=== PATIENT | female | born 1975 | race African-American/Black ===

== ENCOUNTER 2020-10-01 16:49 | Emergency (ER) | payer MEDICARE, MEDICAID, SELFPAY ==
[2020-10-01 17:01] VITALS: BP 123/82; PULSE 84; RESP 15; TEMP 36.6; O2SAT 97; BMI 23.6
--- NOTE | 2020-10-01 17:10 | XR_ITS ---
EXAMINATION: XR CHEST CLINICAL INFORMATION: 45-year-old female patient status post bystander CPR . COMPARISON: None TECHNIQUE: AP portable semierect view of the chest was obtained. The time of examination was 5:55 PM. FINDINGS: No significant abnormality is noted involving the heart, lungs, mediastinum, bony thorax or soft tissues. A nodular shadow measuring 0.8 cm is superimposed upon the anterior aspect of the right sixth rib. This is felt to represent a nipple shadow. XR/XR chest 1V IMPRESSION: Lungs clear. No sign of rib fracture.
--- NOTE | 2020-10-01 17:12 | ECG_ITS ---
Test Reason : s/p bystader CPR, OD Blood Pressure : / mmHG Vent. Rate : 073 BPM Atrial Rate : 073 BPM P-R Int : 182 ms QRS Dur : 084 ms QT Int : 440 ms P-R-T Axes : 063 053 044 degrees QTc Int : 484 ms Normal sinus rhythm Prolonged QT Abnormal ECG No previous ECGs available Referred By: Kassandra Mayen Electronically Signed By:VAHID LANE
--- NOTE | 2020-10-01 17:13 | ED.OVERDOSE ---
HPI - Overdose General Chief Complaint: Overdose Stated Complaint: od Time Seen by Provider: 10/01/20 17:02 Source: EMS Mode of arrival: EMS Limitations: no limitations History of Present Illness HPI Narrative: Patient comes to the emergency room after an overdose. Patient has history of chronic back pain, earlier today she took a tablet of what she thought it was Percocet, given by a friend. Later this afternoon, patient was found unresponsive in the bathroom by her , the started CPR and called EMS. On arrival, patient had pulse, she was given 2 doses of IV Narcan, patient responded well. Patient at this time is awake, very somnolent, complaining of nausea, no chest pain Related Data Home Medications Medication Instructions Recorded Confirmed gabapentin 10/01/20 lamotrigine 10/01/20 olanzapine 10/01/20 omeprazole 10/01/20 prazosin 10/01/20 quetiapine 10/01/20 sertraline 10/01/20 solifenacin 10/01/20 trazodone 10/01/20 Allergies Allergy/AdvReac Type Severity Reaction Status Date / Time aspirin Allergy Anxiety Verified 10/01/20 17:10 Review of Systems Review of Systems: Constitutional : No Weight loss, No Fever, No Chills, No Night Sweats, No Fatigue, No Malaise ENT/Mouth : No Hearing loss, No Ear Pain, No Nasal Congestion, No Sinus Pain, No Hoarseness, No sore throat, No Rhinorrhea, No Swallowing Difficulty Eyes: No Eye Pain, No Swelling, No Redness, No Foreign Body, No Discharge, No Vision Changes Cardiovascular : No Chest Pain, No SOB, No Dyspnea on Exertion, No Orthopnea, No Edema, No Palpitations Respiratory : No Cough, No Sputum, No Wheezing, No Smoke Exposure, No Dyspnea Gastrointestinal : Complaining of Nausea, No Vomiting, No Diarrhea, No Constipation, No abdominal Pain, No Hematochezia, No Melena Genitourinary : no irregular bleeding, No Dysuria, No Urinary Frequency, No Hematuria, No Urinary Incontinence, No Urgency, No Flank Pain, No Urinary Flow Changes, No Hesitancy Musculoskeletal : Chronic back pain, no sternal pain, No joint pain, No Myalgias, No Joint Swelling Skin : No Skin Lesions, No rash Neuro : No Weakness, No Numbness, No Paresthesias, No Loss of Consciousness, No Dizziness, No Headache Psych : No Anxiety/Panic, No Depression, No SI/HI/AH/VH, No Social Issues, Heme/Lymph: No Bruising, No Bleeding,No Lymphadenopathy Endocrine : No Polyuria, No Polydipsia, No Temperature Intolerance [facility] Past Medical History Medical History Anxiety Asthma Depression PTSD (post-traumatic stress disorder) Social History Social History Smoking Status: Current some day smoker Smoked in Last 30 Days: Yes Use of substances other than those prescribed or required for medical reasons: No Advance Directives: No Advance Directives Information Provided: No Physical Exam Vital Signs: Vital Signs: Last Vital Signs Temp 97.8 F 10/01/20 17:01 Pulse 84 10/01/20 17:01 Resp 15 10/01/20 17:01 BP 123/82 10/01/20 17:01 Pulse Ox 97 10/01/20 17:01 Body Mass Index 23.6 Appearance: Alert. Oriented X3. No acute distress. Somnolent but easily arousable Eyes: Pupils equal, round and reactive to light. ENT: Pharynx normal. Neck: Normal inspection. Neck supple. No lymph nodes noted. No crepitus CVS: Normal heart rate and rhythm. Pulses normal. Normal S1 and S2 Respiratory: No respiratory distress. Breath sounds normal. No Wheezing. No rales Abdomen: Soft and nontender. No rigidity. No distention. good BS x4 Skin: Skin warm and dry. Normal skin color. Normal skin turgor. Extremities: No lower extremity edema. No lower extremity edema. No Lacerations. No Rash Neuro: Oriented X 3. No motor deficit. No sensory deficit. Moving all extermities. No slurred speech. Course Course Course Narrative: Patient is awake, alert and oriented x4, no acute distress, ambulating without assistance, steady gait. Patient ready for discharge MDM - Overdose Imaging Data Chest x-ray: Radiologist's impression: No significant abnormality is noted involving the heart, lungs, mediastinum, bony thorax or soft tissues. A nodular shadow measuring 0.8 cm is superimposed upon the anterior aspect of the right sixth rib. This is felt to represent a nipple shadow. XR/XR chest 1V IMPRESSION: Lungs clear. No sign of rib fracture. ECG Data Attestation: I personally reviewed and interpreted this ECG as follows: (Her rate 73, normal sinus rhythm, QTC slightly prolonged at 484, no ST segment depression or elevation) Discharge Plan Discharge Clinical Impression: Drug overdose Qualifiers: Encounter type: initial encounter Injury intent: accidental or unintentional Qualified Code(s): T50.901A - Poisoning by unspecified drugs, medicaments and biological substances, accidental (unintentional), initial encounter Patient Disposition: Home, Self-Care Instructions: Adult Overdose (ED) Additional Instructions: Please stop using drugs. Please follow-up with your primary care physician tomorrow. If you have any worsening or new symptoms, please return to the emergency room or call 911 Prescriptions: No Action gabapentin RF: 0 lamotrigine RF: 0 olanzapine RF: 0 omeprazole RF: 0 prazosin RF: 0 quetiapine RF: 0 sertraline RF: 0 solifenacin RF: 0 trazodone RF: 0
[2020-10-01] MEDS: ondansetron HCL 4 MG/2 ML VIAL IVPUSH (17:30)
--- NOTE | 2020-10-01 17:47 | MHC.RECOVSUP ---
Meet with Patient. Patient Stated that it was a mistake I the wrong Medication. She was having bad back pains..
--- NOTE | 2020-10-01 19:18 | PC.NURSE ---
GAVE PATIENT ICE CHIPS PER DR. METZ.
[2020-10-01] MEDS: Naloxone HCl Nasal TAKE HOME 4 MG SPRAY NOSTRILALT (19:54)
[2020-10-01 20:07] VITALS: BP 128/83; PULSE 67; RESP 18; O2SAT 100
== END 2020-10-01 20:08 | disposition home or self-care (01) ==
PROVIDERS: Emergency Provider Emergency Medicine
DX: T40.2X1D Poisoning by other opioids, accidental (unintentional), subsequent encounter (principal); X58.XXXA Exposure to other specified factors, initial encounter; Z79.899 Other long term (current) drug therapy; F17.200 Nicotine dependence, unspecified, uncomplicated; Z71.6 Tobacco abuse counseling
CPT/HCPCS: 71045; 93005; 96374; 99284; 99285; J2405

== ENCOUNTER 2021-03-01 19:49 | Emergency (ER) | payer MEDICARE, MEDICAID, SELFPAY ==
--- NOTE | ~2021-03-01 | CT_ITS ---
EXAMINATION: CT HEAD WITHOUT CONTRAST CLINICAL INFORMATION: Seizures, headache COMPARISON: None TECHNIQUE: Contiguous axial imaging was performed from the skull base to vertex without intravenous administration of contrast. This CT examination was performed using dose optimization techniques as appropriate, variously including the following: *Automated exposure control *Adjustment of mA and/or kV according to patient size (this includes techniques or standardized protocols for targeted exams where dose is matched to indication/reason for exam; i.e. extremities or head) *Use of iterative reconstruction technique DLP: 726 mGy-cm FINDINGS: No evidence of acute intracranial hemorrhage or extra-axial fluid collection. No evidence of mass lesion, mass effect or midline shift. No acute territorial infarction. Ventricles are symmetric in configuration and normal in size. The basal cisterns are patent. The calvarium is intact. Limited views of the paranasal sinuses are unremarkable. Mastoid air cells are well aerated and middle ear cavities are clear. Limited views of the orbits are unremarkable. CT/CT head/brain wo con IMPRESSION: No acute intracranial pathology.
[2021-03-01 19:54] VITALS: BP 168/108; PULSE 77; RESP 18; TEMP 37.4; O2SAT 99; BMI 23.8
--- NOTE | 2021-03-01 21:37 | ED_ITS ---
HPI - General Adult General Chief complaint: General Medical Stated complaint: seizures Time Seen by Provider: 03/01/21 21:37 Source: patient Mode of arrival: ambulatory Limitations: no limitations History of Present Illness HPI narrative: Patient history of anxiety and depression stable at this time complaining of seizure-like activity lasting for 3 -4 minutes almost every week for last 3 months postictal she feels sleepy and tired family member who watched the episode with eyes up rolling and twitching movements patient does get aura before that last seizure was last week no head injury does have mild diffuse headache no family history of seizures Related Data Home Medications Medication Instructions Recorded Confirmed gabapentin 10/01/20 lamotrigine 10/01/20 olanzapine 10/01/20 omeprazole 10/01/20 prazosin 10/01/20 quetiapine 10/01/20 sertraline 10/01/20 solifenacin 10/01/20 trazodone 10/01/20 Previous Rx's Medication Instructions Recorded lorazepam [Ativan] 0.5 mg PO Q8-12H PRN #14 tab 03/01/21 Allergies Allergy/AdvReac Type Severity Reaction Status Date / Time adhesive Allergy Rash Verified 03/01/21 19:54 aspirin Allergy Anxiety Verified 10/01/20 17:10 Review of Systems 2 Review of Systems: Constitutional : No Weight loss, No Fever, No Chills ENT/Mouth : No sore throat, No Rhinorrhea Eyes: No Eye Pain, No Swelling Cardiovascular : No Chest Pain, no palpitations Respiratory : No Cough, No Sputum, no shortness of breath Gastrointestinal : no Nausea, No Vomiting, No Diarrhea, No abdominal Pain, no black stools Genitourinary : No Dysuria, No Urinary Frequency Musculoskeletal : No joint pain, No Myalgias, No Joint Swelling Skin : No Skin Lesions, No rash Neuro : No Weakness, No Numbness, No Dizziness, No Headache Psych : ++ Anxiety/Panic, No Depression Heme/Lymph: No Bruising, No Lymphadenopathy Endocrine : No Polyuria, No Polydipsia All other systems reviewed and are negative PMFSH Past Medical History Medical History Anxiety Asthma Depression PTSD (post-traumatic stress disorder) Social History Social History Advance Directives: No Advance Directives Information Provided: Yes Patient : No Physical Exam Vital Signs: Vital Signs: Last Vital Signs Temp 99.4 F 03/01/21 19:54 Pulse 84 03/01/21 22:01 Resp 18 03/01/21 22:01 BP 155/105 H 03/01/21 22:01 Pulse Ox 98 03/01/21 22:01 Body Mass Index 23.8 Appearance: Alert. Oriented X3. No acute distress. Eyes: PERRLA, No Nystagmus ENT: Pharynx normal. Oral Mucosa moist Neck: Normal inspection. Neck supple. CVS: Normal heart rate and rhythm. Pulses normal. Respiratory: No respiratory distress. Equal air entry bilateral, no wheezing/rales/rhonchi Abdomen: Soft and nontender. Bowel sounds are present, no mass palpable, no CVA tenderness Skin: Skin warm and dry. Normal skin color. Normal skin turgor. Extremities: No lower extremity edema. No calf tenderness Neuro: Oriented X 3. No motor deficit. No sensory deficit.No cerebellar signs , cranial nerves II-XII intact Medical Decision Making MDM Narrative Medical decision making narrative: Patient possibly have with pseudoseizures versus complex partial seizure with history of anxiety advised to follow-up with neurologist, take medication for anxiety Lab Data Result diagrams: 03/01/21 22:06 03/01/21 22:06 Labs: Lab Results 03/01/21 03/01/21 03/01/21 Range/Units 22:06 22:06 22:06 WBC 9.5 (4.8-10.8) X10*3/uL RBC 3.74 L (4.20-5.50) X10*6/uL Hgb 10.8 L (12.0-16.0) g/dl Hct 33.0 L (37-47) % MCV 88.2 (80-98) fL MCH 28.9 (27.0-33.0) pg MCHC 32.7 (31.0-35.0) g/dl RDW 13.8 (11.0-16.0) % Plt Count 286 (160-400) X10*3/uL MPV 10.1 (9.4-12.3) fL Immature Gran % (Auto) 0.3 (0.0-0.4) % Neut % (Auto) 58.1 (45-73) % Lymph % (Auto) 32.7 (20-40) % [place] % (Auto) 8.3 (2-11) % Eos % (Auto) 0.3 (0-4) % Baso % (Auto) 0.3 (0-2) % Lymph # (Auto) 3.1 (1.2-4.9) X10*3/uL [place] # (Auto) 0.8 (0.1-1.2) X10*3/uL Eos # (Auto) 0.0 (0.0-0.4) X10*3/uL Baso # (Auto) 0.0 (0.0-0.2) X10*3/uL Abs Immat Gran (auto) 0.03 (0.00-0.03) X10*3/uL Absolute Neuts (auto) 5.5 (2.0-8.3) X10*3/uL Absolute Nucleated RBC 0.000 (0.0-0.012) X10*3/uL Nucleated RBC % (auto) 0.0 (0.0-0.2) /100WBC Sodium 141 (135-145) mmol/L Potassium 3.8 (3.3-5.1) mmol/L Chloride 106 (96-108) mmol/L Carbon Dioxide 27 (22-29) mmol/L Anion Gap 12 (12-20) BUN 19 H (9-16) mg/dL Creatinine 1.10 (0.5-1.4) mg/dL Estim Creat Clear Calc 60.4 Estimated GFR 54 Random Glucose 90 (60-115) mg/dL Calcium 9.3 (8.4-10.2) mg/dL Magnesium 2.0 (1.6-2.6) mg/dL Total Bilirubin < 0.2 (0.0-1.0) mg/dL Direct Bilirubin < 0.2 (0.0-0.5) mg/dL AST 12 (5-31) U/L ALT 12 (0-31) U/L Alkaline Phosphatase 95 (39-117) U/L Total Protein 6.8 (6.5-8.0) g/dL Albumin 4.1 (3.5-5.0) g/dL Discharge Plan Discharge Clinical Impression: Seizure disorder Patient Disposition: Home, Self-Care Instructions: Epilepsy (ED) Additional Instructions: Possibly you had complex partial seizure. Follow with neurologist/PCP for further evaluation, do not drive , till diagnosis is made and cleared by a neurologist Ativan for anxiety/seizures Prescriptions: New lorazepam [Ativan] 0.5 mg tablet 0.5 mg PO Q8-12H PRN (Reason: aeizure/anxiety) Qty: 14 RF: 0 No Action gabapentin RF: 0 lamotrigine RF: 0 olanzapine RF: 0 omeprazole RF: 0 prazosin RF: 0 quetiapine RF: 0 sertraline RF: 0 solifenacin RF: 0 trazodone RF: 0 Referrals: Meaghan Elizabeth MD [Physician] - 1 week
[2021-03-01 22:01] VITALS: BP 155/105; PULSE 84; RESP 18; O2SAT 98
[2021-03-01 22:11] LABS: MANUAL DIFF FLAG NO
[2021-03-01 22:15] LABS: Basophils Percent Auto 0.3 % (0-2); Eosinophils Percent Auto 0.3 % (0-4); Hemoglobin 10.8 g/dl (12.0-16.0); Imm Gran Abs Auto 0.03 X10*3/uL (0.00-0.03); Imm Gran Pct Auto 0.3 % (0.0-0.4); Lymphocytes Absolute Auto 3.1 X10*3/uL (1.2-4.9); Lymphocytes Percent Auto 32.7 % (20-40); Mean Corpuscular HGB Conc 32.7 g/dl (31.0-35.0); Mean Corpuscular Hemoglobin 28.9 pg (27.0-33.0); Mean Corpuscular Volume 88.2 fL (80-98); Mean Platelet Volume 10.1 fL (9.4-12.3); Monocytes Absolute Auto 0.8 X10*3/uL (0.1-1.2); Monocytes Percent Auto 8.3 % (2-11); Neutrophils Absolute Auto 5.5 X10*3/uL (2.0-8.3); Neutrophils Percent Auto 58.1 % (45-73); Platelet Count 286 X10*3/uL (160-400); Red Blood Count 3.74 X10*6/uL (4.20-5.50); Red Cell Distribution Width 13.8 % (11.0-16.0); White Blood Count 9.5 X10*3/uL (4.8-10.8)
[2021-03-01 22:41] LABS: Anion Gap 12 (12-20); Blood Urea Nitrogen 19 mg/dL (9-16); Calcium 9.3 mg/dL (8.4-10.2); Carbon Dioxide 27 mmol/L (22-29); Chloride 106 mmol/L (96-108); Creatinine Clr Calc Pharmacy 60.4; Estimated Glomerular Filt Rate 54; Glucose Random 90 mg/dL (60-115); Potassium 3.8 mmol/L (3.3-5.1); Sodium 141 mmol/L (135-145)
[2021-03-01 22:46] LABS: Alanine Aminotransferase 12 U/L (0-31); Albumin Level 4.1 g/dL (3.5-5.0); Alkaline Phosphatase 95 U/L (39-117); Aspartate Amino Transferase 12 U/L (5-31); Bilirubin Direct < 0.2 mg/dL (0.0-0.5); Bilirubin Total < 0.2 mg/dL (0.0-1.0); Total Protein 6.8 g/dL (6.5-8.0)
[2021-03-03 07:46] LABS: Prolactin 3.8 ng/mL
== END 2021-03-01 23:53 | disposition home or self-care (01) ==
PROVIDERS: Emergency Provider Internal Medicine; PCP Nurse Practitioner Family
DX: R56.9 Unspecified convulsions (principal); R51.9 Headache, unspecified; Z79.899 Other long term (current) drug therapy
CPT/HCPCS: 36415; 70450; 80048; 80076; 83735; 84146; 85025; 99283

== ENCOUNTER 2021-11-23 07:50 | Emergency (ER) | payer MEDICARE, MEDICAID, SELFPAY ==
--- NOTE | ~2021-11-23 | XR_ITS ---
EXAMINATION: RIGHT HIP AND LEFT SHOULDER CLINICAL INFORMATION: Seizure and trauma COMPARISON: None TECHNIQUE: Two-view right hip and 3 view left shoulder FINDINGS: 2 views of the right hip do not demonstrate any evidence of acute fracture or dislocation. Hip joint space is maintained. No abnormal lytic or sclerotic lesions identified. No femoral head flattening is seen. Views of the left shoulder do not demonstrate any evidence of acute fracture or dislocation. No calcific tendinitis. Glenohumeral joint unremarkable. No significant degenerative change of the acromioclavicular joint. There is no widening of the left coracoclavicular space. XR/XR shoulder LT min 2V IMPRESSION: No significant bony abnormalities of the right hip or left shoulder.
--- NOTE | ~2021-11-23 | CT_ITS ---
EXAMINATION: CT HEAD WITHOUT CONTRAST CLINICAL INFORMATION: Seizure and head injury. Headache. COMPARISON: March 01, 2021 TECHNIQUE: Contiguous axial imaging was performed from the skull base to vertex without intravenous administration of contrast. This CT examination was performed using dose optimization techniques as appropriate, variously including the following: *Automated exposure control *Adjustment of mA and/or kV according to patient size (this includes techniques or standardized protocols for targeted exams where dose is matched to indication/reason for exam; i.e. extremities or head) *Use of iterative reconstruction technique DLP: 693 mGy-cm FINDINGS: There is no evidence of acute intracranial hemorrhage or territorial infarction. No abnormal mass effect or midline shift is seen. Andrea to white matter differentiation is well preserved. No extra-axial fluid collections are identified. The ventricles are normal in size. There is no abnormal attenuation within the brain parenchyma. The osseous structures and soft tissues are normal. The mastoid air cells and visualized portions of the paranasal sinuses are well aerated. Pterygoid plates intact. CT/CT head/brain wo con IMPRESSION: No acute intracranial pathology.
--- NOTE | ~2021-11-23 | XR_ITS ---
EXAMINATION: RIGHT HIP AND LEFT SHOULDER CLINICAL INFORMATION: Seizure and trauma COMPARISON: None TECHNIQUE: Two-view right hip and 3 view left shoulder FINDINGS: 2 views of the right hip do not demonstrate any evidence of acute fracture or dislocation. Hip joint space is maintained. No abnormal lytic or sclerotic lesions identified. No femoral head flattening is seen. Views of the left shoulder do not demonstrate any evidence of acute fracture or dislocation. No calcific tendinitis. Glenohumeral joint unremarkable. No significant degenerative change of the acromioclavicular joint. There is no widening of the left coracoclavicular space. XR/XR hip RT min 2V IMPRESSION: No significant bony abnormalities of the right hip or left shoulder.
[2021-11-23 08:01] VITALS: BP 118/94; PULSE 82; O2SAT 99
[2021-11-23 08:06] VITALS: BP 125/65; BP 127/86; PULSE 83; PULSE 85; O2SAT 100; BMI 26.3
--- NOTE | 2021-11-23 08:13 | ED.GENADULT ---
HPI - General Adult General Chief complaint: Seizure Stated complaint: seizure Time Seen by Provider: 11/23/21 08:12 Source: patient, family (Daughter) and EMS Mode of arrival: EMS Limitations: no limitations History of Present Illness HPI narrative: 46-year-old female with a known history of seizure patient is taking Keppra for seizure, patient did not take her Keppra for the last week. Patient had a witnessed seizure last night attending in falling down and hit her head, since this morning patient had another seizure witnessed by her daughter lasted for about 1-3 minutes with typical postictal period. Witness to hit her head again, is complaining of headache and left shoulder pain, and right hip pain. Related Data Home Medications Medication Instructions Recorded Confirmed gabapentin 10/01/20 lamotrigine 10/01/20 olanzapine 10/01/20 omeprazole 10/01/20 prazosin 10/01/20 quetiapine 10/01/20 sertraline 10/01/20 solifenacin 10/01/20 trazodone 10/01/20 Previous Rx's Medication Instructions Recorded lorazepam 0.5 mg tablet (Ativan) 0.5 mg PO Q8-12H PRN #14 tab 03/01/21 Allergies Allergy/AdvReac Type Severity Reaction Status Date / Time adhesive Allergy Rash Verified 03/01/21 19:54 aspirin Allergy Anxiety Verified 10/01/20 17:10 Review of Systems Review of Systems: All other systems are reviewed and are negative Constitutional: Reports as per HPI and Reports no additional constitutional complaints Eyes: Reports as per HPI and Reports no additional eye complaints Reports system reviewed and no additional complaints, except as documented Cardiovascular: Reports as per HPI and Reports no additional cardiovascular complaints Respiratory: Reports as per HPI and Reports no additional respiratory complaints Gastrointestinal: Reports as per HPI and Reports no additional gastrointestinal complaints Genitourinary: Reports no additional female genitourinary complaints Musculoskeletal: Reports no additional musculoskeletal complaints Skin/Breast: Reports system reviewed and no additional complaints, except as docu Psychiatric: Reports no additional psychiatric complaints Endocrine: Reports no additional endocrine complaints Hematologic/Lymphatic: Reports no additional hematologic/lymphatic complaints Allergic/Immunologic: Reports no additional allergic/immunologic complaints Reports system reviewed and no additional complaints, except as documented and Reports Abnormal speech present [facility] Past Medical History Medical History Anxiety Asthma Depression PTSD (post-traumatic stress disorder) Social History Social History Alcohol intake: current Alcohol intake frequency: a few times a month Patient Tobacco Use Status: Current everyday Tobacco user Use of substances other than those prescribed or required for medical reasons: No Advance Directives: No Advance Directives Information Provided: No Physical Exam ED Vital Signs: Vital Signs - 24 hr 11/23/21 08:06 11/23/21 11:14 Temperature 98.5 F Pulse Rate 83 68 Respiratory Rate 17 Blood Pressure 125/65 121/77 Pulse Oximetry 99 BMI result Body Mass Index 26.3 Vital signs have been reviewed as appeared to be correct. Blood pressure normal. Heart rate normal. Respiration rate normal. Temperature normal. Oxygen saturation normal. Appearance: Alert. Oriented X3. No acute distress. Head: Normal external exam. Normocephalic. Atraumatic. No Scott signs noted. No raccoon eyes noted Eyes: PERRLA. EOMI. Conjunctiva and sclera normal. Eyelids normal. ENT: TM's Normal. Pharynx normal. Uvula midline. Moist mucous membranes. No trismus noted. No drooling noted. No muffled voice noted. Neck: Normal inspection. Neck supple. FROM. No adenopathy. Thyroid Normal. No meningeal signs. No neck mass noted. CVS: Normal heart rate and rhythm. Heart sound normal. No murmurs noted. Pulses normal throughout. Respiratory: No respiratory distress. Painless inspiration. Breath sounds normal. No wheezes/rales/rhonchi noted. Chest nontender. No accessory muscle usage noted or decreased air movement noted. Abdomen: Soft and nontender. Bowel sounds normal in all 4 quadrants. No distention noted. No organomegaly noted. No visible injury noted. Back: No CVA tenderness. Full range of motion noted. Skin: Skin warm and dry. Normal skin color. Normal skin turgor. No rashes/lesions/lacerations noted. Extremities: No lower extremity edema. Extremities exhibit normal range of motion. Extremities nontender. Neuro: Oriented X 3. Cranial nerve exam: II-XII are grossly intact No motor deficit. No sensory deficit. Reflexes normal. Course Course Course Narrative: Assessment and plan. 46 years old female with known history of seizure had 2 seizure over the past 2 days, patient admitted that she is not compliant with her Keppra anti seizure medication for the past week. Patient was given extra 1000 mg of Keppra, head CT labs are unremarkable. Patient was instructed to take her medication daily. Reevaluation(s) Reevaluation #1: Patient had a witnessed tonic clonic seizure while she was in the emergency department, patient was given Ativan 2 mg IV, patient now is in mild postictal stage. Time: 11:19 Medical Decision Making Medical Records Medical records reviewed: Yes I reviewed the patient's medical records. Lab Data Lab results reviewed: Yes I reviewed the patient's lab results. Result diagrams: 11/23/21 09:20 11/23/21 09:20 Labs: Lab Results 11/23/21 11/23/21 Range/Units 09:20 09:20 WBC 5.7 (4.8-10.8) X10*3/uL RBC 3.86 L (4.20-5.50) X10*6/uL Hgb 11.0 L (12.0-16.0) g/dl Hct 34.3 L (37.0-47.0) % MCV 88.9 (80.0-98.0) fL MCH 28.5 (27.0-33.0) pg MCHC 32.1 (31.0-35.0) g/dl RDW 13.7 (11.0-16.0) % Plt Count 262 (160-400) X10*3/uL MPV 9.7 (9.4-12.3) fL Immature Gran % (Auto) 0.2 (0.0-0.4) % Neut % (Auto) 52.2 (45-73) % Lymph % (Auto) 37.0 (20-40) % [place] % (Auto) 9.3 (2-11) % Eos % (Auto) 0.9 (0-4) % Baso % (Auto) 0.4 (0-2) % Lymph # (Auto) 2.1 (1.2-4.9) X10*3/uL [place] # (Auto) 0.5 (0.1-1.2) X10*3/uL Eos # (Auto) 0.1 (0.0-0.4) X10*3/uL Baso # (Auto) 0.0 (0.0-0.2) X10*3/uL Abs Immat Gran (auto) 0.01 (0.00-0.03) X10*3/uL Absolute Neuts (auto) 3.0 (2.0-8.3) x10*3/uL Absolute Nucleated RBC 0.000 (0.0-0.012) X10*3/uL Nucleated RBC % (auto) 0.0 (0.0-0.2) /100WBC Sodium 139 (135-145) mmol/L Potassium 4.4 (3.3-5.1) mmol/L Chloride 107 (96-108) mmol/L Carbon Dioxide 26 (22-29) mmol/L Anion Gap 10 L (12-20) BUN 20 H (9-16) mg/dL Creatinine 0.89 (0.5-1.4) mg/dL Estim Creat Clear Calc 81.2 Estimated GFR > 60 Random Glucose 98 (60-115) mg/dL Calcium 9.6 (8.4-10.2) mg/dL Magnesium 2.0 (1.6-2.6) mg/dL Imaging Data Head CT: Attestation: I personally reviewed and interpreted this imaging study as follows: Radiologist's impression: No acute pathology. Right hip x-ray: Attestation: I personally reviewed and interpreted this imaging study as follows: Radiologist's impression: No acute fracture or pathology in the right hip. Left shoulder x-ray: Attestation: I personally reviewed and interpreted this imaging study as follows: Radiologist's impression: No acute pathology or fracture on the x-ray. Discharge Plan Discharge Clinical Impression: Generalized seizure Patient Disposition: Home, Self-Care Instructions: Recurrent Seizures in Adults (ED) Additional Instructions: Please take all your medication as prescribed by your doctors as scheduled. Prescriptions: No Action gabapentin 0RF lamotrigine 0RF olanzapine 0RF omeprazole 0RF prazosin 0RF quetiapine 0RF sertraline 0RF solifenacin 0RF trazodone 0RF lorazepam [Ativan] 0.5 mg tablet 0.5 mg PO Q8-12H PRN (Reason: aeizure/anxiety) Qty: 14 0RF Referrals: Michelle Streeter NP [Primary Care Provider] - 2 days
[2021-11-23] MEDS: levETIRAcetam 1,000 MG TABLET 1000 MG PO (08:20)
--- NOTE | 2021-11-23 08:32 | PC.NURSE ---
pt reports she has not taken her Keppra in approximately 1wk because she forgets to take it. she reports that she had a 2 minutes seizure yesterday and similar this morning. pt's daughter reports that she did witness both seizures, her mom did fall and hit her head but no loc. pt alert and oriented, vss, NS on the monitor. Keppra given as documented. will continue to monitor.
[2021-11-23 09:24] LABS: MANUAL DIFF FLAG NO
[2021-11-23 09:25] LABS: Basophils Percent Auto 0.4 % (0-2); Eosinophils Absolute Auto 0.1 X10*3/uL (0.0-0.4); Eosinophils Percent Auto 0.9 % (0-4); Hematocrit 34.3 % (37.0-47.0); Imm Gran Abs Auto 0.01 X10*3/uL (0.00-0.03); Imm Gran Pct Auto 0.2 % (0.0-0.4); Lymphocytes Absolute Auto 2.1 X10*3/uL (1.2-4.9); Mean Corpuscular HGB Conc 32.1 g/dl (31.0-35.0); Mean Corpuscular Hemoglobin 28.5 pg (27.0-33.0); Mean Corpuscular Volume 88.9 fL (80.0-98.0); Mean Platelet Volume 9.7 fL (9.4-12.3); Monocytes Absolute Auto 0.5 X10*3/uL (0.1-1.2); Monocytes Percent Auto 9.3 % (2-11); Neutrophils Percent Auto 52.2 % (45-73); Platelet Count 262 X10*3/uL (160-400); Red Blood Count 3.86 X10*6/uL (4.20-5.50); Red Cell Distribution Width 13.7 % (11.0-16.0); White Blood Count 5.7 X10*3/uL (4.8-10.8)
[2021-11-23 09:46] LABS: Anion Gap 10 (12-20); Blood Urea Nitrogen 20 mg/dL (9-16); Calcium 9.6 mg/dL (8.4-10.2); Carbon Dioxide 26 mmol/L (22-29); Chloride 107 mmol/L (96-108); Creatinine Clr Calc Pharmacy 81.2; Estimated Glomerular Filt Rate > 60; Glucose Random 98 mg/dL (60-115); Potassium 4.4 mmol/L (3.3-5.1); Sodium 139 mmol/L (135-145)
[2021-11-23 11:14] VITALS: BP 121/77; PULSE 68; RESP 17; TEMP 36.9; O2SAT 99
[2021-11-23] MEDS: LORazepam 2 MG/ML VIAL IVPUSH (11:19)
--- NOTE | 2021-11-23 11:50 | PC.NURSE ---
this communications writer called to pt's room by her daughter who reported that the pt was having a seizure. pt's daughter reported that she began having a seizure similar to the one she had last night and this morning. her daughter reported that the seizure lasted approximately one minute. pt noted to be post-ictal when this communications writer arrived in her room. pt alert asking for her daughter and wanted to know where she was. pt re-oriented to place and situation. pt answering questions appropriately, daughter at bedside. IV med given as documented. will continue to monitor
[2021-11-23] MEDS: Acetaminophen 325 MG TABLET 650 MG PO (12:45)
[2021-11-23] MEDS: LORazepam 1 MG TABLET PO (12:46)
[2021-11-23 12:53] VITALS: BP 122/79; PULSE 65; RESP 15; O2SAT 96
== END 2021-11-23 13:00 | disposition home or self-care (01) ==
PROVIDERS: Emergency Provider Emergency Medicine; PCP Nurse Practitioner Family
DX: G40.409 Other generalized epilepsy and epileptic syndromes, not intractable, without status epilepticus (principal); R51.9 Headache, unspecified; M25.512 Pain in left shoulder; M25.551 Pain in right hip; F17.200 Nicotine dependence, unspecified, uncomplicated
CPT/HCPCS: 36415; 70450; 73030; 73502; 80048; 83735; 85025; 96374; 99284; 99285; J2060

== ENCOUNTER 2021-11-27 13:24 | Emergency (ER) | payer MEDICARE, MEDICAID, SELFPAY ==
--- NOTE | ~2021-11-27 | CT_ITS ---
EXAMINATION: CT HEAD WITHOUT CONTRAST CLINICAL INFORMATION: Multiple seizures and head trauma. COMPARISON: CT head dated from 11/23/2021. TECHNIQUE: Contiguous axial imaging was performed from the skull base to vertex without intravenous administration of contrast. This CT examination was performed using dose optimization techniques as appropriate, variously including the following: *Automated exposure control *Adjustment of mA and/or kV according to patient size (this includes techniques or standardized protocols for targeted exams where dose is matched to indication/reason for exam; i.e. extremities or head) *Use of iterative reconstruction technique DLP: 641 mGy-cm FINDINGS: There is no evidence of acute intracranial hemorrhage or edematous territorial infarction. There is no abnormal attenuation within the brain parenchyma. Andrea-white matter differentiation is preserved. The ventricles are normal in size and configuration. No evidence for obstructive hydrocephalus. No abnormal mass effect or midline shift. No extra-axial fluid collections. No acute soft tissue or osseous abnormalities. The mastoid air cells and paranasal sinuses are clear. CT/CT head/brain wo con IMPRESSION: No evidence of acute intracranial hemorrhage or edematous territorial infarction.
--- NOTE | 2021-11-27 13:35 | ED_ITS ---
HPI - Seizure General Chief Complaint: Seizure <Tra Philip MD - Last Filed: 11/27/21 16:34> Stated Complaint: SZ,MULTI SZ THIS WEEK,POST ICTAL @ THIS TIME <Tra Philip MD - Last Filed: 11/27/21 16:34> Time Seen by Provider: 11/27/21 13:35 <Tra Philip MD - Last Filed: 11/27/21 16:34> Source: patient <Tra Philip MD - Last Filed: 11/27/21 16:34> Mode of arrival: EMS <Tra Philip MD - Last Filed: 11/27/21 16:34> Limitations: no limitations <Tra Philip MD - Last Filed: 11/27/21 16:34> History of Present Illness HPI Narrative: Patient with a long history of seizures this week she has had multiple break through seizures <Tra Philip MD - Last Filed: 11/27/21 16:34> MD complaint: seizure <Tra Philip MD - Last Filed: 11/27/21 16:34> Onset (ago): minute(s) <Tra Philip MD - Last Filed: 11/27/21 16:34> Description of Episode: tonic-clonic movement <Tra Philip MD - Last Filed: 11/27/21 16:34> Witnessed: Yes - by Bystander <Tra Philip MD - Last Filed: 11/27/21 16:34> Seizure History: Yes <Tra Philip MD - Last Filed: 11/27/21 16:34> Place: Home <Tra Philip MD - Last Filed: 11/27/21 16:34> Possible Precipitating Event: none <Tra Philip MD - Last Filed: 11/27/21 16:34> Treatments prior to arrival: none <Tra Philip MD - Last Filed: 11/27/21 16:34> Related Data Home Medications: Home Medications Medication Instructions Recorded Confirmed lamotrigine 10/01/20 olanzapine 10/01/20 omeprazole 10/01/20 sertraline 10/01/20 solifenacin 10/01/20 atorvastatin 20 mg tablet 1 tab PO BEDTIME 11/27/21 duloxetine 60 mg capsule,delayed 1 cap PO DAILY 11/27/21 release levetiracetam 750 mg tablet 1 tab PO BID 11/27/21 prazosin 5 mg capsule 2 cap PO BEDTIME 11/27/21 quetiapine 300 mg tablet 2 tab PO BEDTIME 11/27/21 rizatriptan 10 mg tablet mg PO 11/27/21 trazodone 100 mg tablet 1 - 2 tab PO BEDTIME PRN 11/27/21 Previous Rx's Medication Instructions Recorded lorazepam 0.5 mg tablet (Ativan) 0.5 mg PO Q8-12H PRN #14 tab 03/01/21 <Tra Philip MD - Last Filed: 11/27/21 16:34> Allergies/Adverse Reactions: Allergies Allergy/AdvReac Type Severity Reaction Status Date / Time adhesive Allergy Rash Verified 03/01/21 19:54 aspirin Allergy Anxiety Verified 10/01/20 17:10 <Tra Philip MD - Last Filed: 11/27/21 16:34> Review of Systems Constitutional: Constitutional: Reports no additional constitutional complaints <Tra Philip MD - Last Filed: 11/27/21 16:34> Eyes: Eyes: Reports no additional eye complaints <Tra Philip MD - Last Filed: 11/27/21 16:34> ENT: Denies dizziness <Tra Philip MD - Last Filed: 11/27/21 16:34> Cardiovascular: Cardiovascular: Reports no additional cardiovascular complaints <Tra Philip MD - Last Filed: 11/27/21 16:34> Respiratory: Respiratory: Reports as per HPI <Tra Philip MD - Last Filed: 11/27/21 16:34> Gastrointestinal: Gastrointestinal: Reports no additional gastrointestinal complaints <Tra Philip MD - Last Filed: 11/27/21 16:34> Genitourinary: Genitourinary: Reports no additional female genitourinary complaints <Tra Philip MD - Last Filed: 11/27/21 16:34> Musculoskeletal: Musculoskeletal: Reports no additional musculoskeletal complaints <Tra Philip MD - Last Filed: 11/27/21 16:34> Integumentary/Breasts: Skin/Breast: Denies rash <Tra Philip MD - Last Filed: 11/27/21 16:34> Neurologic: Reports system reviewed and no additional complaints, except as documented, Denies dizziness and Denies Sensory deficit (Neuro) <Tra Philip MD - Last Filed: 11/27/21 16:34> Psychiatric: Psychiatric: Denies anxiety <Tra Philip MD - Last Filed: 11/27/21 16:34> [facility] Past Medical History Medical History: Medical History Anxiety Asthma Depression PTSD (post-traumatic stress disorder) <Tra Philip MD - Last Filed: 11/27/21 16:34> Social History Social History: Social History Alcohol intake: current Alcohol intake frequency: does not drink Patient Tobacco Use Status: Current everyday Tobacco user Use of substances other than those prescribed or required for medical reasons: No Advance Directives: No Advance Directives Information Provided: No <Tra Philip MD - Last Filed: 11/27/21 16:34> Physical Exam Vital Signs: Vital Signs: Last Vital Signs Temp 98.7 F 11/27/21 13:42 Pulse 83 11/27/21 14:26 Resp 14 11/27/21 14:26 BP 122/90 H 11/27/21 14:26 BMI result Body Mass Index 26.3 <Tra Philip MD - Last Filed: 11/27/21 16:34> Vital Signs: Last Vital Signs Temp 98.7 F 11/27/21 13:42 Pulse 83 11/27/21 14:26 Resp 14 11/27/21 14:26 BP 122/90 H 11/27/21 14:26 BMI result Body Mass Index 26.3 <Ashutosh Phillips MD - Last Filed: 11/27/21 17:55> Const: Nutritional Appearance: average body habitus <Tra Philip MD - Last Filed: 11/27/21 16:34> Orientation/consciousness: oriented to person and patient oriented x3 <Tra Philip MD - Last Filed: 11/27/21 16:34> Limitations: no limitations <Tra Philip MD - Last Filed: 11/27/21 16:34> HENMT: Head: Yes normal to inspection <Tra Philip MD - Last Filed: 11/27/21 16:34> Ears: external ears normal <Tra Philip MD - Last Filed: 11/27/21 16:34> General nose exam: Normal external nose present <Tra Philip MD - Last Filed: 11/27/21 16:34> Mouth: Normal oral and palatal mucosa present and oropharynx normal <Tra Philip MD - Last Filed: 11/27/21 16:34> Throat: Yes posterior oropharynx normal <Tra Philip MD - Last Filed: 11/27/21 16:34> Eyes: General: appearance normal, both eyes and all related structures <Tra Philip MD - Last Filed: 11/27/21 16:34> Neck: Other: supple <Tra Philip MD - Last Filed: 11/27/21 16:34> Neck: Yes normal visual inspection <Tra Philip MD - Last Filed: 11/27/21 16:34> Chest: Chest palpation & inspection: normal inspection of the chest <Tra Philip MD - Last Filed: 11/27/21 16:34> Resp: Auscultation: clear to auscultation bilaterally <Tra Philip MD - Last Filed: 11/27/21 16:34> Cardio: Jugular venous distension: no JVD <Tra Philip MD - Last Filed: 11/27/21 16:34> Rate: regular rate <Tra Philip MD - Last Filed: 11/27/21 16:34> Rhythm: regular rhythm <Tra Philip MD - Last Filed: 11/27/21 16:34> Heart sounds: S1 normal heart sound present and S2 normal heart sound present <Tra Philip MD - Last Filed: 11/27/21 16:34> GI: Inspection: Yes normal to inspection <Tra Philip MD - Last Filed: 11/27/21 16:34> Palpation (GI): Soft to palpation, nontender and No hepatosplenomegaly present <Tra Philip MD - Last Filed: 11/27/21 16:34> Auscultation: normal bowel sounds <Tra Philip MD - Last Filed: 11/27/21 16:34> : General: Yes no CVA tenderness <Tra Philip MD - Last Filed: 11/27/21 16:34> Back/Spine/Pelvis: Back: no CVA tenderness <Tra Philip MD - Last Filed: 11/27/21 16:34> Skin: General skin exam: no rashes or lesions noted <Tra Philip MD - Last Filed: 11/27/21 16:34> Neuro: General: oriented to person and patient oriented x3 <Tra Phliip MD - Last Filed: 11/27/21 16:34> Cranial nerves: Yes CN's II-XII intact bilaterally <Tra Philip MD - Last Filed: 11/27/21 16:34> Motor exam (neuro): 5/5 motor strength present throughout <Tra Philip MD - Last Filed: 11/27/21 16:34> Sensory Exam: No Sensory deficit (Neuro) <Tra Philip MD - Last Filed: 11/27/21 16:34> Extrem: General: Yes normal to inspection <Tra Philip MD - Last Filed: 11/27/21 16:34> Psych: Other: just feeling slow slightly slurred <Tra Philip MD - Last Filed: 11/27/21 16:34> Course Reevaluation(s) Reevaluation #1: Patient became rigid, this is her third seizure today, Sister is concerned because she hit her head hard at home <Tra Philip MD - Last Filed: 11/27/21 16:34> Time: 14:29 <Tra Philip MD - Last Filed: 11/27/21 16:34> Reevaluation #2: Spoke to Dr Knowles, patient is on 750mg keppra twice a day. We discussed sending a Keppra level and loading with a gram of keppra and they will follow up <Tra Philip MD - Last Filed: 11/27/21 16:34> Time: 14:34 <Tra Philip MD - Last Filed: 11/27/21 16:34> Reevaluation #3: 2421: I a took over this patient's care from my colleague, Dr. Tra Philip at 16:30 hours pending the patient's CT scan of the brain. CT scan of the brain was negative. The patient was complaining of a left-sided headache which she described as a pressure-like sensation which was 8/10 at its worst, the headache was associated with nausea. She states she has had similar headaches in the after seizures. Patient is able to take NSAIDs. She was treated with Toradol 15 mg IV, Benadryl 50 mg IV and Reglan 10 mg IV. The patient will be observed for another 30 minutes in if her headaches improved she will be discharged home. The patient is requesting a work note, she states she missed work since Friday of last week and she would like to take a week off to try to recover from her seizures. <Ashutosh Phillips MD - Last Filed: 11/27/21 17:55> Time: 17:49 <Ashutosh Phillips MD - Last Filed: 11/27/21 17:55> MDM - Seizure Lab Data Result diagrams: : 11/27/21 14:47 11/27/21 14:47 <Tra Philip MD - Last Filed: 11/27/21 16:34> Labs: Lab Results 11/27/21 11/27/21 11/27/21 Range/Units 14:47 14:47 15:34 WBC 6.7 (4.8-10.8) X10*3/uL RBC 3.76 L (4.20-5.50) X10*6/uL Hgb 10.7 L (12.0-16.0) g/dl Hct 33.3 L (37.0-47.0) % MCV 88.6 (80.0-98.0) fL MCH 28.5 (27.0-33.0) pg MCHC 32.1 (31.0-35.0) g/dl RDW 13.2 (11.0-16.0) % Plt Count 279 (160-400) X10*3/uL MPV 10.2 (9.4-12.3) fL Immature Gran % (Auto) 0.1 (0.0-0.4) % Neut % (Auto) 51.7 (45-73) % Lymph % (Auto) 39.0 (20-40) % [place] % (Auto) 7.6 (2-11) % Eos % (Auto) 1.3 (0-4) % Baso % (Auto) 0.3 (0-2) % Lymph # (Auto) 2.6 (1.2-4.9) X10*3/uL [place] # (Auto) 0.5 (0.1-1.2) X10*3/uL Eos # (Auto) 0.1 (0.0-0.4) X10*3/uL Baso # (Auto) 0.0 (0.0-0.2) X10*3/uL Abs Immat Gran (auto) 0.01 (0.00-0.03) X10*3/uL Absolute Neuts (auto) 3.5 (2.0-8.3) x10*3/uL Absolute Nucleated RBC 0.000 (0.0-0.012) X10*3/uL Nucleated RBC % (auto) 0.0 (0.0-0.2) /100WBC Sodium 139 (135-145) mmol/L Potassium 4.4 (3.3-5.1) mmol/L Chloride 108 (96-108) mmol/L Carbon Dioxide 25 (22-29) mmol/L Anion Gap 10 L (12-20) BUN 15 (9-16) mg/dL Creatinine 0.91 (0.5-1.4) mg/dL Estim Creat Clear Calc 79.4 Estimated GFR > 60 Random Glucose 84 (60-115) mg/dL Calcium 9.7 (8.4-10.2) mg/dL Urine Color YELLOW Urine Appearance HAZY Urine pH 6.0 (5.0-8.0) Ur Specific [place] 1.015 (1.005-1.025) Urine Protein NEG (NEG-TRACE) MG/DL Urine Glucose (UA) NEG (NEG) MG/DL Urine Ketones NEG (NEG) MG/DL Urine Blood 1+ H (NEG) Urine Nitrite POS H (NEG) Ur Leukocyte Esterase NEG (NEG) Urine RBC 1-4 (0) /HPF Urine WBC 0-2 (0-4) /HPF Ur Squamous Epith Cells 3+ /LPF Urine Bacteria 4+ /LPF <Tra Philip MD - Last Filed: 11/27/21 16:34> Lab Results 11/27/21 11/27/21 11/27/21 Range/Units 14:47 14:47 15:34 WBC 6.7 (4.8-10.8) X10*3/uL RBC 3.76 L (4.20-5.50) X10*6/uL Hgb 10.7 L (12.0-16.0) g/dl Hct 33.3 L (37.0-47.0) % MCV 88.6 (80.0-98.0) fL MCH 28.5 (27.0-33.0) pg MCHC 32.1 (31.0-35.0) g/dl RDW 13.2 (11.0-16.0) % Plt Count 279 (160-400) X10*3/uL MPV 10.2 (9.4-12.3) fL Immature Gran % (Auto) 0.1 (0.0-0.4) % Neut % (Auto) 51.7 (45-73) % Lymph % (Auto) 39.0 (20-40) % [place] % (Auto) 7.6 (2-11) % Eos % (Auto) 1.3 (0-4) % Baso % (Auto) 0.3 (0-2) % Lymph # (Auto) 2.6 (1.2-4.9) X10*3/uL [place] # (Auto) 0.5 (0.1-1.2) X10*3/uL Eos # (Auto) 0.1 (0.0-0.4) X10*3/uL Baso # (Auto) 0.0 (0.0-0.2) X10*3/uL Abs Immat Gran (auto) 0.01 (0.00-0.03) X10*3/uL Absolute Neuts (auto) 3.5 (2.0-8.3) x10*3/uL Absolute Nucleated RBC 0.000 (0.0-0.012) X10*3/uL Nucleated RBC % (auto) 0.0 (0.0-0.2) /100WBC Sodium 139 (135-145) mmol/L Potassium 4.4 (3.3-5.1) mmol/L Chloride 108 (96-108) mmol/L Carbon Dioxide 25 (22-29) mmol/L Anion Gap 10 L (12-20) BUN 15 (9-16) mg/dL Creatinine 0.91 (0.5-1.4) mg/dL Estim Creat Clear Calc 79.4 Estimated GFR > 60 Random Glucose 84 (60-115) mg/dL Calcium 9.7 (8.4-10.2) mg/dL Urine Color YELLOW Urine Appearance HAZY Urine pH 6.0 (5.0-8.0) Ur Specific [place] 1.015 (1.005-1.025) Urine Protein NEG (NEG-TRACE) MG/DL Urine Glucose (UA) NEG (NEG) MG/DL Urine Ketones NEG (NEG) MG/DL Urine Blood 1+ H (NEG) Urine Nitrite POS H (NEG) Ur Leukocyte Esterase NEG (NEG) Urine RBC 1-4 (0) /HPF Urine WBC 0-2 (0-4) /HPF Ur Squamous Epith Cells 3+ /LPF Urine Bacteria 4+ /LPF <Ashutosh Phillips MD - Last Filed: 11/27/21 17:55> Discharge Plan Discharge Clinical Impression: Epileptic seizure <Tra Philip MD - Last Filed: 11/27/21 16:34> Patient Disposition: Home, Self-Care <Tra Philip MD - Last Filed: 11/27/21 16:34> Instructions: Epilepsy (ED) <Tra Philip MD - Last Filed: 11/27/21 16:34> Additional Instructions: The CT scan of your head did not reveal any significant abnormality to explain your seizures and you had no evidence of injuries from your seizures in falling. There was no skull fracture or bleeding in your brain noted by the radiologist. You received Toradol 15 mg IV, Benadryl 50 mg IV and Reglan 10 mg IV for headache. These medications will make you sleepy. Go home and sleep in that should help your headache go away. Your blood work today was unremarkable. Dr. Philip did check a Keppra level and this will come back in a week. This will help your doctor decide if you need to be on a higher dose of Keppra. Call your neurologist tomorrow to see if you can make a follow-up appointment within 1 week to check your Keppra level and to determine if you need a change in your anti seizure medications. Please see the work note. <Tra Philip MD - Last Filed: 11/27/21 16:34> Prescriptions: No Action lamotrigine 0RF olanzapine 0RF omeprazole 0RF sertraline 0RF solifenacin 0RF lorazepam [Ativan] 0.5 mg tablet 0.5 mg PO Q8-12H PRN (Reason: aeizure/anxiety) Qty: 14 0RF atorvastatin 20 mg tablet 1 tab PO BEDTIME 0RF quetiapine 300 mg tablet 2 tab PO BEDTIME 0RF rizatriptan 10 mg tablet PO 0RF prazosin 5 mg capsule 2 cap PO BEDTIME 0RF trazodone 100 mg tablet 1 - 2 tab PO BEDTIME PRN (Reason: insomnia) 0RF levetiracetam 750 mg tablet 1 tab PO BID 0RF duloxetine 60 mg capsule,delayed release(DR/EC) 1 cap PO DAILY 0RF <Tra Philip MD - Last Filed: 11/27/21 16:34> Referrals: Shantelle Elizabeth MD [Physician] - 5 days <Tra Philip MD - Last Filed: 11/27/21 16:34> Stand Alone Forms: Work/School Release <Tra Philip MD - Last Filed: 11/27/21 16:34>
[2021-11-27 13:42] VITALS: BP 119/87; BP 140/90; PULSE 80; RESP 18; TEMP 37.1; BMI 26.3
[2021-11-27 14:26] VITALS: BP 122/90; PULSE 83; RESP 14
[2021-11-27] MEDS: LORazepam 2 MG/ML VIAL 1 MG IVPUSH (14:30)
[2021-11-27 14:53] LABS: MANUAL DIFF FLAG NO
[2021-11-27 14:56] LABS: Basophils Percent Auto 0.3 % (0-2); Eosinophils Absolute Auto 0.1 X10*3/uL (0.0-0.4); Eosinophils Percent Auto 1.3 % (0-4); Hematocrit 33.3 % (37.0-47.0); Hemoglobin 10.7 g/dl (12.0-16.0); Imm Gran Abs Auto 0.01 X10*3/uL (0.00-0.03); Imm Gran Pct Auto 0.1 % (0.0-0.4); Lymphocytes Absolute Auto 2.6 X10*3/uL (1.2-4.9); Mean Corpuscular HGB Conc 32.1 g/dl (31.0-35.0); Mean Corpuscular Hemoglobin 28.5 pg (27.0-33.0); Mean Corpuscular Volume 88.6 fL (80.0-98.0); Mean Platelet Volume 10.2 fL (9.4-12.3); Monocytes Absolute Auto 0.5 X10*3/uL (0.1-1.2); Monocytes Percent Auto 7.6 % (2-11); Neutrophils Absolute Auto 3.5 x10*3/uL (2.0-8.3); Neutrophils Percent Auto 51.7 % (45-73); Platelet Count 279 X10*3/uL (160-400); Red Blood Count 3.76 X10*6/uL (4.20-5.50); Red Cell Distribution Width 13.2 % (11.0-16.0); White Blood Count 6.7 X10*3/uL (4.8-10.8)
--- NOTE | 2021-11-27 15:01 | PC.NURSE ---
It was brought to this RN attn pt having seizure, rigid upper extremities, unresponsive. No bowel/bladder incontinence. Last approx [address] Philip to bedside and Ativan 1mg IVP given. Seizure pads in place, IV patent. Curtain to remain open.
[2021-11-27 15:06] LABS: Anion Gap 10 (12-20); Blood Urea Nitrogen 15 mg/dL (9-16); Calcium 9.7 mg/dL (8.4-10.2); Carbon Dioxide 25 mmol/L (22-29); Chloride 108 mmol/L (96-108); Creatinine Clr Calc Pharmacy 79.4; Estimated Glomerular Filt Rate > 60; Glucose Random 84 mg/dL (60-115); Potassium 4.4 mmol/L (3.3-5.1); Sodium 139 mmol/L (135-145)
[2021-11-27] MEDS: levETIRAcetam in NaCl (iso-os) 1,000 MG/100 ML PIGGYBACK 400 MG IV (15:07)
[2021-11-27] MEDS: Acetaminophen 325 MG TABLET 975 MG PO (15:38)
[2021-11-27 15:41] LABS: Appearance Urine HAZY; Color Urine YELLOW; Glucose Urine UA NEG (NEG); Leukocyte Esterase Urine NEG (NEG); Nitrite Urine POS (NEG); Specific Gravity - Urine 1.015 (1.005-1.025); UACC Culture Trigger YES; Urine Blood 1+ (NEG); Urine Ketones NEG (NEG); Urine Protein NEG (NEG-TRACE)
[2021-11-27 15:52] LABS: Bacteria Urine 4+ /LPF; Squamous Epithelial Cell Urine 3+ /LPF; WBC Urine 0-2 /HPF (0-4)
[2021-11-27] MEDS: Ketorolac Tromethamine 15 MG/ML VIAL IVPUSH (17:46)
[2021-11-27] MEDS: diphenhydrAMINE HCL 50 MG/ML VIAL IVPUSH (17:47)
[2021-11-27] MEDS: Metoclopramide HCl 10 MG/2 ML VIAL IVPUSH (17:50)
[2021-11-27 17:52] VITALS: BP 129/85; PULSE 79; RESP 16
[2021-12-01 03:52] LABS: Levetiracetam Keppra 23.4 mcg/mL (12.0-46.0)
== END 2021-11-27 18:57 | disposition home or self-care (01) ==
PROVIDERS: Emergency Medicine; Emergency Provider Emergency Medicine Emergency Medical Services
DX: G40.909 Epilepsy, unspecified, not intractable, without status epilepticus (principal); F17.200 Nicotine dependence, unspecified, uncomplicated
CPT/HCPCS: 36415; 70450; 80048; 80177; 81001; 85025; 87086; 87088; 87186; 96374; 96375; 99284; J1200; J1885; J1953; J2060; J2765

== ENCOUNTER 2021-12-11 18:22 | Emergency (ER) | payer MEDICARE, MEDICAID, SELFPAY ==
[2021-12-11 18:33] VITALS: BP 160/108; PULSE 86; O2SAT 100
[2021-12-11 18:36] VITALS: BP 147/97; PULSE 83; RESP 18; TEMP 37.6; O2SAT 96; BMI 27.7
[2021-12-11 18:45] VITALS: BP 140/94; PULSE 86; RESP 19; O2SAT 97
--- NOTE | 2021-12-11 18:56 | ED.SEIZURE ---
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 on Keppra 1500 mg twice daily used to be on 750 twice daily increased to 50 100 last week patient was taking lamotrigine which was stopped under lot of stress at home having seizures almost every day today brought by ambulance as had multiple seizures at least 4 patient had a witnessed seizure in front of her EMS lasted for 2 minutes 2 mg of Versed was given no tongue bite no injuries complaining of generalized body aches Seizure History: Yes Related Data Home Medications Medication Instructions Recorded Confirmed lamotrigine 10/01/20 olanzapine 10/01/20 omeprazole 10/01/20 sertraline 10/01/20 solifenacin 10/01/20 atorvastatin 20 mg tablet 1 tab PO BEDTIME 11/27/21 duloxetine 60 mg capsule,delayed 1 cap PO DAILY 11/27/21 release levetiracetam 750 mg tablet 1 tab PO BID 11/27/21 prazosin 5 mg capsule 2 cap PO BEDTIME 11/27/21 quetiapine 300 mg tablet 2 tab PO BEDTIME 11/27/21 rizatriptan 10 mg tablet mg PO 11/27/21 trazodone 100 mg tablet 1 - 2 tab PO BEDTIME PRN 11/27/21 Previous Rx's Medication Instructions Recorded lorazepam 0.5 mg tablet (Ativan) 0.5 mg PO Q8-12H PRN #14 tab 03/01/21 nitrofurantoin 100 mg PO BID 7 Days #14 cap 12/04/21 monohydrate/macrocrystals 100 mg capsule (Macrobid) lorazepam 1 mg tablet (Ativan) 1 mg PO TID PRN #14 tab 12/11/21 Allergies Allergy/AdvReac Type Severity Reaction Status Date / Time adhesive Allergy Rash Verified 12/11/21 18:36 aspirin Allergy Anxiety Verified 12/11/21 18:36 Review of Systems Review of Systems: Yes all other systems are reviewed and are negative PMFSH Past Medical History Medical History Anxiety Asthma Depression PTSD (post-traumatic stress disorder) Social History Social History Alcohol intake: current Alcohol intake frequency: does not drink Patient Tobacco Use Status: Current everyday Tobacco user Advance Directives: No Advance Directives Information Provided: No Patient : No Physical Exam Vital Signs: Vital Signs: Last Vital Signs Temp 99.4 F 12/11/21 20:24 Pulse 76 12/11/21 20:24 Resp 18 12/11/21 20:24 BP 139/92 H 12/11/21 20:24 Pulse Ox 100 12/11/21 20:24 BMI result Body Mass Index 27.7 Appearance: Alert. Oriented X3. No acute distress. Feels sleepy under the influence of Versed Eyes: No pallor or icterus ENT: Pharynx normal. Oral Mucosa moist no tongue bite Neck: Normal inspection. Neck supple. CVS: Normal heart rate and rhythm. Pulses normal. Respiratory: No respiratory distress. Equal air entry bilateral, no wheezing/rales/rhonchi Abdomen: Soft and nontender. Bowel sounds are present, no mass palpable, no CVA tenderness Skin: Skin warm and dry. Normal skin color. Normal skin turgor. Extremities: No lower extremity edema. No calf tenderness Neuro: Oriented X 3. No motor deficit. No sensory deficit.No cerebellar signs , cranial nerves II-XII intact MDM - Seizure Lab Data Result diagrams: 12/11/21 19:28 12/11/21 19:28 Labs: Lab Results 12/11/21 12/11/21 Range/Units 19:28 19:28 WBC 6.6 (4.8-10.8) X10*3/uL RBC 3.71 L (4.20-5.50) X10*6/uL Hgb 10.6 L (12.0-16.0) g/dl Hct 32.8 L (37.0-47.0) % MCV 88.4 (80.0-98.0) fL MCH 28.6 (27.0-33.0) pg MCHC 32.3 (31.0-35.0) g/dl RDW 13.6 (11.0-16.0) % Plt Count 244 (160-400) X10*3/uL MPV 9.5 (9.4-12.3) fL Immature Gran % (Auto) 0.2 (0.0-0.4) % Neut % (Auto) 35.9 L (45-73) % Lymph % (Auto) 54.2 H (20-40) % [place] % (Auto) 8.0 (2-11) % Eos % (Auto) 1.4 (0-4) % Baso % (Auto) 0.3 (0-2) % Lymph # (Auto) 3.6 (1.2-4.9) X10*3/uL [place] # (Auto) 0.5 (0.1-1.2) X10*3/uL Eos # (Auto) 0.1 (0.0-0.4) X10*3/uL Baso # (Auto) 0.0 (0.0-0.2) X10*3/uL Abs Immat Gran (auto) 0.01 (0.00-0.03) X10*3/uL Absolute Neuts (auto) 2.4 (2.0-8.3) x10*3/uL Absolute Nucleated RBC 0.000 (0.0-0.012) X10*3/uL Nucleated RBC % (auto) 0.0 (0.0-0.2) /100WBC Sodium 139 (135-145) mmol/L Potassium 4.4 (3.3-5.1) mmol/L Chloride 107 (96-108) mmol/L Carbon Dioxide 28 (22-29) mmol/L Anion Gap 8 L (12-20) BUN 12 (9-16) mg/dL Creatinine 0.85 (0.5-1.4) mg/dL Estim Creat Clear Calc 87.1 Estimated GFR > 60 Random Glucose 88 (60-115) mg/dL Calcium 9.4 (8.4-10.2) mg/dL Discharge Plan Discharge Clinical Impression: Generalized seizure Patient Disposition: Home, Self-Care Instructions: Recurrent Seizures in Adults (ED) Additional Instructions: Continue medications as prescribed by neurologist and follow up with him Ativan for anxiety Prescriptions: New lorazepam [Ativan] 1 mg tablet 1 mg PO TID PRN (Reason: anxiety) Qty: 14 0RF No Action lamotrigine 0RF olanzapine 0RF omeprazole 0RF sertraline 0RF solifenacin 0RF lorazepam [Ativan] 0.5 mg tablet 0.5 mg PO Q8-12H PRN (Reason: aeizure/anxiety) Qty: 14 0RF atorvastatin 20 mg tablet 1 tab PO BEDTIME 0RF quetiapine 300 mg tablet 2 tab PO BEDTIME 0RF rizatriptan 10 mg tablet PO 0RF prazosin 5 mg capsule 2 cap PO BEDTIME 0RF trazodone 100 mg tablet 1 - 2 tab PO BEDTIME PRN (Reason: insomnia) 0RF levetiracetam 750 mg tablet 1 tab PO BID 0RF duloxetine 60 mg capsule,delayed release(DR/EC) 1 cap PO DAILY 0RF nitrofurantoin monohyd/m-cryst [Macrobid] 100 mg capsule 100 mg PO BID 7 Days Qty: 14 0RF Rx Instructions: must administer with a meal/food Interventions: ED Discharge Assessment Last Done: 12/11/21 20:29 Discharge Date/Time: 12/11/21 20:35
[2021-12-11 19:32] LABS: MANUAL DIFF FLAG NO
[2021-12-11 19:34] LABS: Basophils Percent Auto 0.3 % (0-2); Eosinophils Absolute Auto 0.1 X10*3/uL (0.0-0.4); Eosinophils Percent Auto 1.4 % (0-4); Hematocrit 32.8 % (37.0-47.0); Hemoglobin 10.6 g/dl (12.0-16.0); Imm Gran Abs Auto 0.01 X10*3/uL (0.00-0.03); Imm Gran Pct Auto 0.2 % (0.0-0.4); Lymphocytes Absolute Auto 3.6 X10*3/uL (1.2-4.9); Lymphocytes Percent Auto 54.2 % (20-40); Mean Corpuscular HGB Conc 32.3 g/dl (31.0-35.0); Mean Corpuscular Hemoglobin 28.6 pg (27.0-33.0); Mean Corpuscular Volume 88.4 fL (80.0-98.0); Mean Platelet Volume 9.5 fL (9.4-12.3); Monocytes Absolute Auto 0.5 X10*3/uL (0.1-1.2); Neutrophils Absolute Auto 2.4 x10*3/uL (2.0-8.3); Neutrophils Percent Auto 35.9 % (45-73); Platelet Count 244 X10*3/uL (160-400); Red Blood Count 3.71 X10*6/uL (4.20-5.50); Red Cell Distribution Width 13.6 % (11.0-16.0); White Blood Count 6.6 X10*3/uL (4.8-10.8)
[2021-12-11] MEDS: levETIRAcetam in NaCl (iso-os) 1,000 MG/100 ML PIGGYBACK 400 MG IV (19:39)
[2021-12-11 19:41] VITALS: BP 134/98; PULSE 73; RESP 17; O2SAT 99
[2021-12-11 19:48] LABS: Anion Gap 8 (12-20); Blood Urea Nitrogen 12 mg/dL (9-16); Calcium 9.4 mg/dL (8.4-10.2); Carbon Dioxide 28 mmol/L (22-29); Chloride 107 mmol/L (96-108); Creatinine Clr Calc Pharmacy 87.1; Estimated Glomerular Filt Rate > 60; Glucose Random 88 mg/dL (60-115); Potassium 4.4 mmol/L (3.3-5.1); Sodium 139 mmol/L (135-145)
[2021-12-11] MEDS: Butalb/Acetamin/Caff 50/325/40 TABLET 1 TAB PO (20:23)
[2021-12-11 20:24] VITALS: BP 139/92; PULSE 76; RESP 18; TEMP 37.4; O2SAT 100
--- NOTE | 2021-12-11 20:28 | PC.NURSE ---
Pt alert and oriented x4, calm and cooperative. Complains of headache, medication given. IV removed. Vitals stable, remains on room air. Pt educated on discharge by md and RN. Pt left with significant othe rwithout issues, ambulated well.
== END 2021-12-11 20:35 | disposition home or self-care (01) ==
PROVIDERS: Emergency Provider Internal Medicine
DX: G40.409 Other generalized epilepsy and epileptic syndromes, not intractable, without status epilepticus (principal); R51.9 Headache, unspecified
CPT/HCPCS: 36415; 80048; 85025; 96374; 99284; J1953

== ENCOUNTER 2022-01-10 21:40 | Emergency (ER) | payer MEDICARE, MEDICAID, SELFPAY ==
--- NOTE | ~2022-01-10 | XR_ITS ---
EXAMINATION: XR KNEE, LEFT CLINICAL INFORMATION: Trauma. Pain. COMPARISON: None TECHNIQUE: Two views of the left knee. FINDINGS: No acute fractures or malalignment. Mild joint space narrowing of the medial compartment. Small joint effusion. No unexpected radiopaque foreign bodies. XR/XR knee LT 2V IMPRESSION: No acute fractures or malalignment. 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 Small joint effusion.
[2022-01-10 23:03] VITALS: BP 122/73; PULSE 92; RESP 16; TEMP 36.3; O2SAT 97; BMI 28.4
[2022-01-10] MEDS: oxyCODONE HCl Immed Release 5 MG TABLET PO (23:24)
--- NOTE | 2022-01-11 00:09 | ED_ITS ---
HPI - Extremity Injury (Lower) General Chief Complaint: Extremity Injury, Lower Stated Complaint: left knee pain Time Seen by Provider: 01/10/22 22:59 Source: patient Mode of arrival: ambulatory Limitations: no limitations History of Present Illness HPI Narrative: Patient trying to open the door with her left foot while kicking the door hyper extended the knee came with pain in the left knee increase on ambulation with slight swelling of the knee joint no other injuries no prior problem with her knee joint Related Data Home Medications Medication Instructions Recorded Confirmed lamotrigine 10/01/20 olanzapine 10/01/20 omeprazole 10/01/20 sertraline 10/01/20 solifenacin 10/01/20 atorvastatin 20 mg tablet 1 tab PO BEDTIME 11/27/21 duloxetine 60 mg capsule,delayed 1 cap PO DAILY 11/27/21 release levetiracetam 750 mg tablet 1 tab PO BID 11/27/21 prazosin 5 mg capsule 2 cap PO BEDTIME 11/27/21 quetiapine 300 mg tablet 2 tab PO BEDTIME 11/27/21 rizatriptan 10 mg tablet mg PO 11/27/21 trazodone 100 mg tablet 1 - 2 tab PO BEDTIME PRN 11/27/21 Previous Rx's Medication Instructions Recorded lorazepam 0.5 mg tablet (Ativan) 0.5 mg PO Q8-12H PRN #14 tab 03/01/21 nitrofurantoin 100 mg PO BID 7 Days #14 cap 12/04/21 monohydrate/macrocrystals 100 mg capsule (Macrobid) lorazepam 1 mg tablet (Ativan) 1 mg PO TID PRN #14 tab 12/11/21 oxycodone-acetaminophen 5 mg-325 1 tab PO Q6H PRN #20 tab 01/11/22 mg tablet (Percocet) Allergies Allergy/AdvReac Type Severity Reaction Status Date / Time adhesive Allergy Rash Verified 12/11/21 18:36 aspirin Allergy Anxiety Verified 12/11/21 18:36 Review of Systems Review of Systems: Yes all other systems are reviewed and are negative [facility] Past Medical History Medical History Anxiety Asthma Depression PTSD (post-traumatic stress disorder) Social History Social History Alcohol intake: current Alcohol intake frequency: does not drink Patient Tobacco Use Status: Current everyday Tobacco user Advance Directives: No Advance Directives Information Provided: No Patient : No Physical Exam Vital Signs: Vital Signs: Last Vital Signs Temp 97.3 F 01/10/22 23:03 Pulse 92 01/10/22 23:03 Resp 16 01/10/22 23:03 BP 122/73 01/10/22 23:03 Pulse Ox 97 01/10/22 23:03 BMI result Body Mass Index 28.4 Const: General: healthy appearing and comfortable HEENT: Head: Yes normocephalic and Yes atraumatic Extrem: Knee images: 1. Tenderness at the medial joint line no knee effusion good range of movement slight soft tissue swelling patella in place MDM - Extremity Injury (Lower) MDM Narrative Medical decision making narrative: Patient x-ray negative for any fracture likely is hyper extended the knee with strain of the ligaments specially medial collateral ligament. Knee immobilizer was applied patient was given crutches to ambulate Discharge Plan Discharge Clinical Impression: Knee strain Patient Disposition: Home, Self-Care Instructions: Knee Sprain (ED) Additional Instructions: Wear the knee splint for support and use crutches for ambulation Follow-up with orthopedics for further evaluation Pain medication as advised Prescriptions: New oxycodone-acetaminophen [Percocet] 5-325 mg tablet 1 tab PO Q6H PRN (Reason: pain) Qty: 20 0RF No Action lamotrigine 0RF olanzapine 0RF omeprazole 0RF sertraline 0RF solifenacin 0RF lorazepam [Ativan] 0.5 mg tablet 0.5 mg PO Q8-12H PRN (Reason: aeizure/anxiety) Qty: 14 0RF atorvastatin 20 mg tablet 1 tab PO BEDTIME 0RF quetiapine 300 mg tablet 2 tab PO BEDTIME 0RF rizatriptan 10 mg tablet PO 0RF prazosin 5 mg capsule 2 cap PO BEDTIME 0RF trazodone 100 mg tablet 1 - 2 tab PO BEDTIME PRN (Reason: insomnia) 0RF levetiracetam 750 mg tablet 1 tab PO BID 0RF duloxetine 60 mg capsule,delayed release(DR/EC) 1 cap PO DAILY 0RF nitrofurantoin monohyd/m-cryst [Macrobid] 100 mg capsule 100 mg PO BID 7 Days Qty: 14 0RF Rx Instructions: must administer with a meal/food lorazepam [Ativan] 1 mg tablet 1 mg PO TID PRN (Reason: anxiety) Qty: 14 0RF Referrals: Ned Davis MD [Physician] - 1 week
--- NOTE | 2022-01-11 00:48 | PC.NURSE ---
Tech applied knee immobilizer on pt left lower extremity. Educated on application of splint and use of crutches. Pt understands use of devices.
== END 2022-01-11 00:56 | disposition home or self-care (01) ==
PROVIDERS: Emergency Provider Internal Medicine; PCP Nurse Practitioner Family
DX: S86.912A Strain of unspecified muscle(s) and tendon(s) at lower leg level, left leg, initial encounter (principal); X50.1XXA Overexertion from prolonged static or awkward postures, initial encounter; Y93.89 Activity, other specified; Y92.018 Other place in single-family (private) house as the place of occurrence of the external cause; Y99.9 Unspecified external cause status
CPT/HCPCS: 73560; 99283

== ENCOUNTER 2022-02-04 08:21 | Outpatient (REF) | payer MEDICARE, MEDICAID, SELFPAY ==
--- NOTE | ~2022-02-04 | XR_ITS ---
EXAMINATION: XR KNEE AP STANDING CLINICAL INFORMATION: Pain COMPARISON: Previous x-ray January 2022 TECHNIQUE: AP bilateral standing view of the knees and sunrise view of the left knee was obtained. FINDINGS: Left knee: Bone alignment is normal. No fracture or dislocation is seen. There is mild medial femoral tibial joint space narrowing. The patellofemoral joint is normal. Standing AP view of the left knee demonstrates mild medial femoral tibial joint space narrowing. XR/XR knee standing BI IMPRESSION: Mild bilateral medial femoral tibial joint space narrowing.
--- NOTE | ~2022-02-04 | XR_ITS ---
EXAMINATION: XR KNEE AP STANDING CLINICAL INFORMATION: Pain COMPARISON: Previous x-ray January 2022 TECHNIQUE: AP bilateral standing view of the knees and sunrise view of the left knee was obtained. FINDINGS: Left knee: Bone alignment is normal. No fracture or dislocation is seen. There is mild medial femoral tibial joint space narrowing. The patellofemoral joint is normal. Standing AP view of the left knee demonstrates mild medial femoral tibial joint space narrowing. XR/XR knee LT 1V IMPRESSION: Mild bilateral medial femoral tibial joint space narrowing.
== END 2022-02-04 08:22 | disposition home or self-care (01) ==
LOC: HO.HOSX 08:21
PROVIDERS: Visit Provider Physician Assistant
DX: M23.92 Unspecified internal derangement of left knee (principal); M25.561 Pain in right knee
CPT/HCPCS: 73560; 73565; 99202

== ENCOUNTER 2022-03-11 12:54 | Emergency (ER) | payer MEDICARE, MEDICAID, SELFPAY ==
--- NOTE | ~2022-03-11 | CT_ITS ---
EXAMINATION: CT CHEST WITHOUT CONTRAST CLINICAL INFORMATION: Anterior chest wall pain COMPARISON: Chest radiograph 10/01/2020 TECHNIQUE: Multidetector volumetric CT imaging of the chest was done. Axial MIP volume rendering provided. Sagittal and coronal reformatted images were obtained. This CT examination was performed using dose optimization techniques as appropriate, variously including the following: *Automated exposure control *Adjustment of mA and/or kV according to patient size (this includes techniques or standardized protocols for targeted exams where dose is matched to indication/reason for exam; i.e. extremities or head) *Use of iterative reconstruction technique DLP: 225 mGy-cm FINDINGS: LUNGS: There is a tiny 2 mm nodule present in the left lower lobe (5:268). The lungs are otherwise clear with no evidence of worrisome inflammation or nodules. MEDIASTINUM: The mediastinum is unremarkable. A tiny amount of pericardial fluid is present. PLEURA: There is no pleural effusion. No pleural mass or thickening. AXILLA/CHEST WALL: No lymphadenopathy. No chest wall masses. UPPER ABDOMEN: A 5 mm benign cyst is noted in the left lobe of the liver. OSSEOUS STRUCTURES: The sternum and manubrium appear normal. No rib fractures are seen. CT/CT chest wo con IMPRESSION: A cause for the patient's anterior chest wall pain has not been found. Incidental note made of tiny 2 mm left lower lobe lung nodule, a tiny amount of pericardial fluid along and a 5 mm benign hepatic cyst. 2017 Fleischner Society Recommendations for Lung Nodule(s): Follow-Up based on size (average of long- and short-axis diameters). Use most suspicious nodule for followup. Single Solid low risk nodule < 6 mm: No routine follow-up imaging is recommended in low risk and high risk patients. These guidelines do not apply to patients younger than 35 years, immunocompromised patients, and patients with cancer. F/u in patients with significant comorbidities as clinically warranted. For lung cancer screening, adhere to Lung-RADS guidelines. Reference: Radiology. 2017 Joseph; 284(1):228-243 Fleischner guidelines were followed.
[2022-03-11 13:28] VITALS: BP 137/72; PULSE 88; RESP 18; TEMP 36.9; O2SAT 100; BMI 28.4
--- NOTE | 2022-03-11 15:02 | ED.GENADULT ---
HPI - General Adult General Chief complaint: General Medical Stated complaint: BREAST PAIN Time Seen by Provider: 03/11/22 14:58 Source: patient and family Mode of arrival: ambulatory History of Present Illness HPI narrative: 46-year-old female who presents with entire chest wall discomfort that has been increasing for the past 2-3 days not associated with any fevers, night sweats, unexplained weight loss, but patient states when she lifts her arms up to approximately 90 degrees she feels extensive pain along the entire anterior chest wall. She states she has never had this happen before and that her mother has had breast cancer at the approximate age of 40s. Related Data Home Medications Medication Instructions Recorded Confirmed atorvastatin 20 mg tablet 1 tab PO BEDTIME 11/27/21 duloxetine 60 mg capsule,delayed 1 cap PO DAILY 11/27/21 release prazosin 5 mg capsule 2 cap PO BEDTIME 11/27/21 quetiapine 300 mg tablet 2 tab PO BEDTIME 11/27/21 oxcarbazepine 300 mg tablet 300 mg PO BID 02/04/22 Previous Rx's Medication Instructions Recorded nitrofurantoin 100 mg PO BID 7 Days #14 cap 12/04/21 monohydrate/macrocrystals 100 mg capsule (Macrobid) oxycodone-acetaminophen 5 mg-325 1 tab PO Q6H PRN #20 tab 01/11/22 mg tablet (Percocet) Allergies Allergy/AdvReac Type Severity Reaction Status Date / Time adhesive Allergy Rash Verified 02/04/22 14:13 aspirin Allergy Anxiety Verified 02/04/22 14:13 Review of Systems Review of Systems: Pertinent positives and negatives as stated in HPI 10 point review of systems is otherwise negative. [facility] Past Medical History Source: nursing notes reviewed Medical History Anxiety Asthma Depression PTSD (post-traumatic stress disorder) Social History Social History Alcohol intake: current Alcohol intake frequency: does not drink Patient Tobacco Use Status: Current someday Tobacco user Advance Directives: Yes Advance Directives Information Provided: Yes Advance Directives on File: No Current occupational status: unemployed Physical Exam ED Vital Signs: Vital Signs - 24 hr 03/11/22 13:28 Temperature 98.5 F Pulse Rate 88 Respiratory Rate 18 Blood Pressure 137/72 Pulse Oximetry 100 BMI result Body Mass Index 28.4 VITAL SIGNS: Reviewed. GENERAL: Well developed, well nourished, in no acute distress. HEAD: Normocephalic/atraumatic EYES: PERRLA, EOMI EARS: Ext canals without abnormality OROPHARYNX: no oral lesions noted, posterior pharynx clear LUNGS: Normal breath sounds. No adventitious sounds or accessory muscle use. SpO2<100> BREASTS: [[employer]] bilateral breasts are without erythema or induration and there is no nipple discharge on expression, however there is palpable lymph nodes noted in the tail of [place] on the left and significant tenderness on palpation along the inframammary fold to the posterior aspect bilateral breasts there is no abnormality or asymmetry noted when compared to each other and on further lymph node evaluation there are approximate 3 cm lymph nodes noted at the anterior cervical chain and scattered smaller ones and questionable left supraclavicular lymph node. CARDIOVASCULAR: Regular rate and rhythm without noted murmurs, no JVD or lower extremity edema. ABDOMEN: Soft, non-tender, non-distended with bowel sounds. NEUROLOGIC: Alert and oriented x 4. Course Course Course Narrative: 46-year-old female with history and clinical presentation concerning for possible lymphoma, there are no obvious breast abnormalities to suggest infection or breast mass but there are multiple lymph nodes noted along the anterior chest wall and up the anterior cervical chain as well as the left clavicular. Will obtain basic labs and as well as a CT scan Review of all investigations without acute findings. LDH is within normal limits and although there is an elevation of the lymphocytes, the value is actually lower than prior. Signed out to Dr. Miller to follow-up CT scan. Medical Decision Making Lab Data Result diagrams: 03/11/22 15:10 03/11/22 15:10 Labs: Lab Results 03/11/22 03/11/22 Range/Units 15:10 15:10 WBC 5.9 (4.8-10.8) X10*3/uL RBC 3.91 L (4.20-5.50) X10*6/uL Hgb 11.0 L (12.0-16.0) g/dl Hct 34.5 L (37.0-47.0) % MCV 88.2 (80.0-98.0) fL MCH 28.1 (27.0-33.0) pg MCHC 31.9 (31.0-35.0) g/dl RDW 12.9 (11.0-16.0) % Plt Count 270 (160-400) X10*3/uL MPV 9.4 (9.4-12.3) fL Immature Gran % (Auto) 0.2 (0.0-0.4) % Neut % (Auto) 49.8 (45-73) % Lymph % (Auto) 41.7 H (20-40) % [place] % (Auto) 6.5 (2-11) % Eos % (Auto) 1.5 (0-4) % Baso % (Auto) 0.3 (0-2) % Lymph # (Auto) 2.5 (1.2-4.9) X10*3/uL [place] # (Auto) 0.4 (0.1-1.2) X10*3/uL Eos # (Auto) 0.1 (0.0-0.4) X10*3/uL Baso # (Auto) 0.0 (0.0-0.2) X10*3/uL Abs Immat Gran (auto) 0.01 (0.00-0.03) X10*3/uL Absolute Neuts (auto) 2.9 (2.0-8.3) x10*3/uL Absolute Nucleated RBC 0.000 (0.0-0.012) X10*3/uL Nucleated RBC % (auto) 0.0 (0.0-0.2) /100WBC Sodium 140 (135-145) mmol/L Potassium 4.5 (3.3-5.1) mmol/L Chloride 108 (96-108) mmol/L Carbon Dioxide 24 (22-29) mmol/L Anion Gap 13 (12-20) BUN 18 H (9-16) mg/dL Creatinine 0.84 (0.5-1.4) mg/dL Estim Creat Clear Calc 89.2 Estimated GFR > 60 Random Glucose 92 (60-115) mg/dL Calcium 9.6 (8.4-10.2) mg/dL Total Bilirubin 0.3 (0.0-1.0) mg/dL AST 24 D (5-31) U/L ALT 29 (0-31) U/L Alkaline Phosphatase 118 H D (39-117) U/L Lactate Dehydrogenase 183 (122-220) U/L Total Protein 7.1 (6.5-8.0) g/dL Albumin 4.3 (3.5-5.0) g/dL Beta HCG, Quant < 2 mIU/mL Discharge Plan Discharge Clinical Impression: Anterior chest wall pain, Lymphadenopathy Patient Disposition: Still a Patient Prescriptions: No Action atorvastatin 20 mg tablet 1 tab PO BEDTIME 0RF quetiapine 300 mg tablet 2 tab PO BEDTIME 0RF prazosin 5 mg capsule 2 cap PO BEDTIME 0RF duloxetine 60 mg capsule,delayed release(DR/EC) 1 cap PO DAILY 0RF nitrofurantoin monohyd/m-cryst [Macrobid] 100 mg capsule 100 mg PO BID 7 Days Qty: 14 0RF Rx Instructions: must administer with a meal/food oxycodone-acetaminophen [Percocet] 5-325 mg tablet 1 tab PO Q6H PRN (Reason: pain) Qty: 20 0RF oxcarbazepine 300 mg tablet 300 mg PO BID 0RF
[2022-03-11 15:23] LABS: Basophils Percent Auto 0.3 % (0-2); Eosinophils Absolute Auto 0.1 X10*3/uL (0.0-0.4); Eosinophils Percent Auto 1.5 % (0-4); Hematocrit 34.5 % (37.0-47.0); Imm Gran Abs Auto 0.01 X10*3/uL (0.00-0.03); Imm Gran Pct Auto 0.2 % (0.0-0.4); Lymphocytes Absolute Auto 2.5 X10*3/uL (1.2-4.9); Lymphocytes Percent Auto 41.7 % (20-40); MANUAL DIFF FLAG NO; Mean Corpuscular HGB Conc 31.9 g/dl (31.0-35.0); Mean Corpuscular Hemoglobin 28.1 pg (27.0-33.0); Mean Corpuscular Volume 88.2 fL (80.0-98.0); Mean Platelet Volume 9.4 fL (9.4-12.3); Monocytes Absolute Auto 0.4 X10*3/uL (0.1-1.2); Monocytes Percent Auto 6.5 % (2-11); Neutrophils Absolute Auto 2.9 x10*3/uL (2.0-8.3); Neutrophils Percent Auto 49.8 % (45-73); Platelet Count 270 X10*3/uL (160-400); Red Blood Count 3.91 X10*6/uL (4.20-5.50); Red Cell Distribution Width 12.9 % (11.0-16.0); White Blood Count 5.9 X10*3/uL (4.8-10.8)
[2022-03-11 15:39] LABS: Alanine Aminotransferase 29 U/L (0-31); Albumin Level 4.3 g/dL (3.5-5.0); Alkaline Phosphatase 118 U/L (39-117); Anion Gap 13 (12-20); Aspartate Amino Transferase 24 U/L (5-31); Bilirubin Total 0.3 mg/dL (0.0-1.0); Blood Urea Nitrogen 18 mg/dL (9-16); Calcium 9.6 mg/dL (8.4-10.2); Carbon Dioxide 24 mmol/L (22-29); Chloride 108 mmol/L (96-108); Creatinine Clr Calc Pharmacy 89.2; Estimated Glomerular Filt Rate > 60; Glucose Random 92 mg/dL (60-115); Lactate Dehydrogenase 183 U/L (122-220); Potassium 4.5 mmol/L (3.3-5.1); Sodium 140 mmol/L (135-145); Total Protein 7.1 g/dL (6.5-8.0)
[2022-03-11 15:45] LABS: HCG Quantitative < 2 mIU/mL
[2022-03-11] MEDS: Acetaminophen 325 MG TABLET 975 MG PO (16:03)
[2022-03-11] MEDS: Ondansetron ODT 4 MG TAB.RAPDIS TRANSLINGU (16:49)
[2022-03-11 19:10] VITALS: BP 153/100; PULSE 72; RESP 16; O2SAT 99
== END 2022-03-11 19:12 | disposition home or self-care (01) ==
PROVIDERS: Student in an Organized Health Care Education/Training Program; Emergency Provider Internal Medicine; PCP Nurse Practitioner Family
DX: R07.89 Other chest pain (principal); R59.1 Generalized enlarged lymph nodes; F17.200 Nicotine dependence, unspecified, uncomplicated; Z80.3 Family history of malignant neoplasm of breast
CPT/HCPCS: 36415; 71250; 80053; 83615; 84702; 85025; 99284

== ENCOUNTER 2022-05-06 20:20 | Emergency (ER) | payer MEDICARE, MEDICAID, SELFPAY ==
--- NOTE | ~2022-05-06 | XR_ITS ---
EXAMINATION: XR CHEST CLINICAL INFORMATION: Cough. Seizure. COMPARISON: 10/01/2020 TECHNIQUE: Frontal view of the chest was obtained. FINDINGS: The lungs are well expanded. There is no focal consolidation, edema, or effusion. No pneumothorax. The cardiomediastinal silhouette is within normal limits. No acute osseous abnormality. XR/XR chest 1V IMPRESSION: Clear lungs.
--- NOTE | ~2022-05-06 | CT_ITS ---
EXAMINATION: CT HEAD WITHOUT CONTRAST CLINICAL INFORMATION: Seizure COMPARISON: CT head 11/27/2021 TECHNIQUE: Contiguous axial imaging was performed from the skull base to vertex without intravenous administration of contrast. Coronal and sagittal reformatted images are performed at CT scanner This CT examination was performed using dose optimization techniques as appropriate, variously including the following: *Automated exposure control *Adjustment of mA and/or kV according to patient size (this includes techniques or standardized protocols for targeted exams where dose is matched to indication/reason for exam; i.e. extremities or head) *Use of iterative reconstruction technique DLP: 5.12+820.24 mGy-cm FINDINGS: There is no evidence of acute intracranial hemorrhage or territorial infarction. No abnormal mass effect or midline shift is seen. Andrea to white matter differentiation is well preserved. No extra-axial fluid collections are identified. The ventricles are normal in size. There is no abnormal attenuation within the brain parenchyma. The osseous structures and soft tissues are normal. The mastoid air cells and visualized portions of the paranasal sinuses are well aerated. CT/CT head/brain wo con IMPRESSION: No acute intracranial pathology.
--- NOTE | ~2022-05-06 | CT_ITS ---
EXAMINATION: CT ABDOMEN AND PELVIS WITHOUT CONTRAST CLINICAL INFORMATION: Right lower quadrant pain with nausea and vomiting COMPARISON: None TECHNIQUE: Multidetector volumetric imaging was performed from the superior aspect of the liver through the pubic symphysis. Sagittal and coronal reformatted images were obtained on the technologist's workstation. This CT examination was performed using dose optimization techniques as appropriate, variously including the following: *Automated exposure control *Adjustment of mA and/or kV according to patient size (this includes techniques or standardized protocols for targeted exams where dose is matched to indication/reason for exam; i.e. extremities or head) *Use of iterative reconstruction technique DLP: 544 mGy-cm FINDINGS: LUNG BASES: The visualized lung bases are unremarkable. LIVER, GALLBLADDER, AND BILIARY TREE: The liver is normal in size, shape, and attenuation. At least 3 small hypodensities are seen in the liver the largest measuring 0.9 cm and water density. These all are most likely benign simple cysts. No worrisome solid focal hepatic lesion or biliary ductal dilatation is present. The gallbladder is unremarkable with no evidence of radiopaque gallstones, gallbladder wall thickening, or obvious pericholecystic inflammatory changes. PANCREAS: Unremarkable. SPLEEN: Unremarkable. ADRENAL GLANDS: Unremarkable. KIDNEYS AND URETERS: The kidneys are normal in size, shape, and attenuation. There is bilateral nephrolithiasis with 3 punctate stones on the left largest 2 mm and a single 2 mm nonobstructing calculus at the right lower pole. No hydronephrosis, hydroureter, or calculi seen. No perinephric stranding. BLADDER: Unremarkable. GASTROINTESTINAL TRACT: The small and large bowel are unremarkable. The appendix is unremarkable. ABDOMINAL WALL: No significant hernia is appreciated. LYMPH NODES: Normal. VASCULAR: Unremarkable. PELVIC VISCERA: An anteverted uterus is present. An abnormal adnexal mass or free intraperitoneal fluid is not seen. OSSEOUS STRUCTURES: Degenerative changes are present at L5-S1 with endplate sclerosis sites. CT/CT abdomen pelvis wo con IMPRESSION: There are nonobstructing bilateral small renal calculi. Small hepatic cysts which are benign and need no further evaluation. Other incidental findings as described above. Fleischner guidelines were followed.
[2022-05-06 20:41] VITALS: BP 135/98; PULSE 93; TEMP 37; O2SAT 99
[2022-05-06 20:48] VITALS: BP 144/110; BP 145/91; PULSE 100; PULSE 86; RESP 20; TEMP 37; O2SAT 96; O2SAT 98; BMI 28.7
--- NOTE | 2022-05-06 21:29 | ED_ITS ---
HPI - Seizure General Chief Complaint: Seizure Stated Complaint: seizure Time Seen by Provider: 05/06/22 21:26 Source: patient and EMS Mode of arrival: EMS Limitations: no limitations History of Present Illness HPI Narrative: 46-year-old female history of seizure came in for evaluation of seizure. Patient came in by ambulance for evaluation of seizure 2-3 times today, patient stated that she has been taking her medication for seizure patient takes oxcarbamazepine. Patient declined head trauma, no blurry vision, no photophobia, patient declined any EtOH consumption. Patient also is complaining of a week of right lower quadrant abdominal pain that is localized to the right quadrant area, no radiation described as moderate 5/10 dull aching pain localized to the right lower quadrant area associated with nausea and vomiting with a week of nonbloody watery diarrhea, no sick contact, no history of eating bad food, no recent use of antibiotic for any reason. patient also been complaining of feeling hot and cold with chills, dry cough for a week with no chest pain, no urinary frequency, no dysuria Seizure History: Yes Related Data Home Medications Medication Instructions Recorded Confirmed atorvastatin 20 mg tablet 1 tab PO BEDTIME 11/27/21 duloxetine 60 mg capsule,delayed 1 cap PO DAILY 11/27/21 release prazosin 5 mg capsule 2 cap PO BEDTIME 11/27/21 quetiapine 300 mg tablet 2 tab PO BEDTIME 11/27/21 oxcarbazepine 300 mg tablet 300 mg PO BID 02/04/22 Previous Rx's Medication Instructions Recorded nitrofurantoin 100 mg PO BID 7 days #14 caps 12/04/21 monohydrate/macrocrystals 100 mg capsule (Macrobid) oxycodone-acetaminophen 5 mg-325 1 tab PO Q6H PRN pain #20 tabs 01/11/22 mg tablet (Percocet) ibuprofen 600 mg tablet 600 mg PO Q6H PRN pain #20 tabs 03/11/22 Allergies Allergy/AdvReac Type Severity Reaction Status Date / Time adhesive Allergy Rash Verified 02/04/22 14:13 aspirin Allergy Anxiety Verified 02/04/22 14:13 Review of Systems Review of Systems: all other systems are reviewed and are negative Constitutional: Reports as per HPI and Reports no additional constitutional complaints Eyes: Reports as per HPI and Reports no additional eye complaints Reports system reviewed and no additional complaints, except as documented Cardiovascular: Reports as per HPI and Reports no additional cardiovascular complaints Respiratory: Reports as per HPI and Reports no additional respiratory complaints Gastrointestinal: Reports as per HPI and Reports no additional gastrointestinal complaints Genitourinary: Reports no additional female genitourinary complaints Musculoskeletal: Reports no additional musculoskeletal complaints Skin/Breast: Reports system reviewed and no additional complaints, except as docu Psychiatric: Reports no additional psychiatric complaints Endocrine: Reports no additional endocrine complaints Hematologic/Lymphatic: Reports no additional hematologic/lymphatic complaints Allergic/Immunologic: Reports no additional allergic/immunologic complaints Reports system reviewed and no additional complaints, except as documented and Reports Abnormal speech present [facility] Past Medical History Medical History Anxiety Asthma Depression PTSD (post-traumatic stress disorder) Social History Social History Alcohol intake: never Patient Tobacco Use Status: Current someday Tobacco user Smoked in Last 30 Days: Yes Use of substances other than those prescribed or required for medical reasons: No Advance Directives: No Advance Directives Information Provided: No Current occupational status: unemployed Physical Exam Vital Signs: Vital Signs: Last Vital Signs Temp 98.6 F 05/06/22 20:48 Pulse 86 05/06/22 20:48 Resp 20 05/06/22 20:48 BP 145/91 H 05/06/22 20:48 Pulse Ox 98 05/06/22 20:48 O2 Del Method 05/06/22 20:48 Oxygen Flow Rate 2 05/06/22 20:48 BMI result Body Mass Index 28.7 vital signs have been reviewed as appeared to be correct. Blood pressure normal. Heart rate normal. Respiration rate normal. Temperature normal. Oxygen saturation normal. Appearance: Alert. Oriented X3. No acute distress. Head: Normal external exam. Normocephalic. Atraumatic. No Scott signs noted. No raccoon eyes noted Eyes: PERRLA. EOMI. Conjunctiva and sclera normal. Eyelids normal. ENT: TM's Normal. Pharynx normal. Uvula midline. Moist mucous membranes. No trismus noted. No drooling noted. No muffled voice noted. Neck: Normal inspection. Neck supple. FROM. No adenopathy. Thyroid Normal. No meningeal signs. No neck mass noted. CVS: Normal heart rate and rhythm. Heart sound normal. No murmurs noted. Pulses normal throughout. Respiratory: No respiratory distress. Painless inspiration. Breath sounds normal. No wheezes/rales/rhonchi noted. Chest nontender. No accessory muscle u edy noted or decreased air movement noted. Abdomen: Soft and nontender. Bowel sounds normal in all 4 quadrants. No distention noted. No organomegaly noted. No visible injury noted. Back: No CVA tenderness. Full range of motion noted. Skin: Skin warm and dry. Normal skin color. Normal skin turgor. No rashes/lesions/lacerations noted. Extremities: No lower extremity edema. Extremities exhibit normal range of motion. Extremities nontender. Neuro: Oriented X 3. Cranial nerve exam: II-XII are grossly intact No motor deficit. No sensory deficit. Reflexes normal. Course Course Course Narrative: Multiple seizures despite patient been compliant with her medication patient been having constant nausea, vomiting, and nonbloody watery diarrhea for the past week. Patient received IV fluids and antinausea medication, patient feels better now able to tolerate p.o. intake. MDM - Seizure Lab Data Attestation: I reviewed the patient's lab results. Result diagrams: 05/06/22 22:04 05/06/22 22:04 Labs: Lab Results 05/06/22 05/06/22 05/06/22 Range/Units 21:58 22:04 22:04 WBC 7.2 (4.8-10.8) X10*3/uL RBC 3.79 L (4.20-5.50) X10*6/uL Hgb 10.7 L (12.0-16.0) g/dl Hct 33.2 L (37.0-47.0) % MCV 87.6 (80.0-98.0) fL MCH 28.2 (27.0-33.0) pg MCHC 32.2 (31.0-35.0) g/dl RDW 13.0 (11.0-16.0) % Plt Count 299 (160-400) X10*3/uL MPV 9.8 (9.4-12.3) fL Immature Gran % (Auto) 0.0 (0.0-0.4) % Neut % (Auto) 37.6 L (45-73) % Lymph % (Auto) 51.3 H (20-40) % [place] % (Auto) 9.1 (2-11) % Eos % (Auto) 1.7 (0-4) % Baso % (Auto) 0.3 (0-2) % Lymph # (Auto) 3.7 (1.2-4.9) X10*3/uL [place] # (Auto) 0.7 (0.1-1.2) X10*3/uL Eos # (Auto) 0.1 (0.0-0.4) X10*3/uL Baso # (Auto) 0.0 (0.0-0.2) X10*3/uL Abs Immat Gran (auto) 0.00 (0.00-0.03) X10*3/uL Absolute Neuts (auto) 2.7 (2.0-8.3) x10*3/uL Absolute Nucleated RBC 0.000 (0.0-0.012) X10*3/uL Nucleated RBC % (auto) 0.0 (0.0-0.2) /100WBC Sodium 141 (135-145) mmol/L Potassium 4.2 (3.3-5.1) mmol/L Chloride 108 (96-108) mmol/L Carbon Dioxide 23 (22-29) mmol/L Anion Gap 14 (12-20) BUN 15 (9-16) mg/dL Creatinine 0.83 (0.5-1.4) mg/dL Estim Creat Clear Calc 90.7 Estimated GFR > 60 Random Glucose 94 (60-115) mg/dL Calcium 9.7 (8.4-10.2) mg/dL Total Bilirubin 0.2 (0.0-1.0) mg/dL Direct Bilirubin < 0.2 (0.0-0.5) mg/dL AST 19 (5-31) U/L ALT 14 (0-31) U/L Alkaline Phosphatase 129 H (39-117) U/L Total Protein 7.0 (6.5-8.0) g/dL Albumin 4.3 (3.5-5.0) g/dL Lipase 67 (8-78) U/L Urine Color Urine Appearance Urine pH (5.0-8.0) Ur Specific [place] (1.005-1.025) Urine Protein (NEG-TRACE) MG/DL Urine Glucose (UA) (NEG) MG/DL Urine Ketones (NEG) MG/DL Urine Blood (NEG) Urine Nitrite (NEG) Ur Leukocyte Esterase (NEG) Urine RBC (0) /HPF Urine WBC (0-4) /HPF Ur Squamous Epith Cells /LPF Amorphous Sediment /LPF Urine Bacteria /LPF Urine Mucus /LPF COVID-19 (MATTHEW) Negative (Negative) COVID-19 Clin Com See Note 05/07/22 Range/Units 00:58 WBC (4.8-10.8) X10*3/uL RBC (4.20-5.50) X10*6/uL Hgb (12.0-16.0) g/dl Hct (37.0-47.0) % MCV (80.0-98.0) fL MCH (27.0-33.0) pg MCHC (31.0-35.0) g/dl RDW (11.0-16.0) % Plt Count (160-400) X10*3/uL MPV (9.4-12.3) fL Immature Gran % (Auto) (0.0-0.4) % Neut % (Auto) (45-73) % Lymph % (Auto) (20-40) % [place] % (Auto) (2-11) % Eos % (Auto) (0-4) % Baso % (Auto) (0-2) % Lymph # (Auto) (1.2-4.9) X10*3/uL [place] # (Auto) (0.1-1.2) X10*3/uL Eos # (Auto) (0.0-0.4) X10*3/uL Baso # (Auto) (0.0-0.2) X10*3/uL Abs Immat Gran (auto) (0.00-0.03) X10*3/uL Absolute Neuts (auto) (2.0-8.3) x10*3/uL Absolute Nucleated RBC (0.0-0.012) X10*3/uL Nucleated RBC % (auto) (0.0-0.2) /100WBC Sodium (135-145) mmol/L Potassium (3.3-5.1) mmol/L Chloride (96-108) mmol/L Carbon Dioxide (22-29) mmol/L Anion Gap (12-20) BUN (9-16) mg/dL Creatinine (0.5-1.4) mg/dL Estim Creat Clear Calc Estimated GFR Random Glucose (60-115) mg/dL Calcium (8.4-10.2) mg/dL Total Bilirubin (0.0-1.0) mg/dL Direct Bilirubin (0.0-0.5) mg/dL AST (5-31) U/L ALT (0-31) U/L Alkaline Phosphatase (39-117) U/L Total Protein (6.5-8.0) g/dL Albumin (3.5-5.0) g/dL Lipase (8-78) U/L Urine Color YELLOW Urine Appearance CLOUDY Urine pH 7.0 (5.0-8.0) Ur Specific [place] 1.025 (1.005-1.025) Urine Protein NEG (NEG-TRACE) MG/DL Urine Glucose (UA) NEG (NEG) MG/DL Urine Ketones NEG (NEG) MG/DL Urine Blood TRACE (NEG) Urine Nitrite POS H (NEG) Ur Leukocyte Esterase NEG (NEG) Urine RBC 1-4 (0) /HPF Urine WBC 1-4 (0-4) /HPF Ur Squamous Epith Cells 1+ /LPF Amorphous Sediment 1+ /LPF Urine Bacteria 4+ /LPF Urine Mucus 1+ /LPF COVID-19 (MATTHEW) (Negative) COVID-19 Clin Com Imaging Data Chest x-ray: Attestation: I personally reviewed and interpreted this imaging study as follows: Radiologist's impression: Clear lungs. CT abdomen and pelvis.: Attestation: I personally reviewed and interpreted this imaging study as follows: Radiologist's impression: There are nonobstructing bilateral small renal calculi. Small hepatic cysts which are benign and need no further evaluation. Other incidental findings as described above.? ? Head CT: Attestation: I personally reviewed and interpreted this imaging study as follows: Radiologist's impression: no acute intracranial pathology. Discharge Plan Discharge Clinical Impression: Seizure, Vomiting, Dehydration Patient Disposition: Home, Self-Care Instructions: Dehydration (ED) Prescriptions: No Action ibuprofen 600 mg tablet 600 mg PO Q6H PRN (Reason: pain) Qty: 20 0RF atorvastatin 20 mg tablet 1 tab PO BEDTIME quetiapine 300 mg tablet 2 tab PO BEDTIME prazosin 5 mg capsule 2 cap PO BEDTIME duloxetine 60 mg capsule,delayed release(DR/EC) 1 cap PO DAILY nitrofurantoin monohyd/m-cryst [Macrobid] 100 mg capsule 100 mg PO BID 7 Days Qty: 14 0RF Rx Instructions: must administer with a meal/food oxycodone-acetaminophen [Percocet] 5-325 mg tablet 1 tab PO Q6H PRN (Reason: pain) Qty: 20 0RF oxcarbazepine 300 mg tablet 300 mg PO BID Referrals: Physician,Unknown J [Primary Care Provider] -
[2022-05-06] MEDS: 0.9 % Sodium Chloride 1,000 ML 999 ML IV (22:06)
[2022-05-06 22:10] LABS: MANUAL DIFF FLAG NO
[2022-05-06 22:13] LABS: Basophils Percent Auto 0.3 % (0-2); Eosinophils Absolute Auto 0.1 X10*3/uL (0.0-0.4); Eosinophils Percent Auto 1.7 % (0-4); Hematocrit 33.2 % (37.0-47.0); Hemoglobin 10.7 g/dl (12.0-16.0); Lymphocytes Absolute Auto 3.7 X10*3/uL (1.2-4.9); Lymphocytes Percent Auto 51.3 % (20-40); Mean Corpuscular HGB Conc 32.2 g/dl (31.0-35.0); Mean Corpuscular Hemoglobin 28.2 pg (27.0-33.0); Mean Corpuscular Volume 87.6 fL (80.0-98.0); Mean Platelet Volume 9.8 fL (9.4-12.3); Monocytes Absolute Auto 0.7 X10*3/uL (0.1-1.2); Monocytes Percent Auto 9.1 % (2-11); Neutrophils Absolute Auto 2.7 x10*3/uL (2.0-8.3); Neutrophils Percent Auto 37.6 % (45-73); Platelet Count 299 X10*3/uL (160-400); Red Blood Count 3.79 X10*6/uL (4.20-5.50); White Blood Count 7.2 X10*3/uL (4.8-10.8)
[2022-05-06 22:28] LABS: COVID-19 Test Negative (Negative); IDNOW Serial# 08D9AD1C
[2022-05-06 22:38] LABS: Alanine Aminotransferase 14 U/L (0-31); Albumin Level 4.3 g/dL (3.5-5.0); Alkaline Phosphatase 129 U/L (39-117); Anion Gap 14 (12-20); Aspartate Amino Transferase 19 U/L (5-31); Bilirubin Direct < 0.2 mg/dL (0.0-0.5); Bilirubin Total 0.2 mg/dL (0.0-1.0); Blood Urea Nitrogen 15 mg/dL (9-16); Calcium 9.7 mg/dL (8.4-10.2); Carbon Dioxide 23 mmol/L (22-29); Chloride 108 mmol/L (96-108); Creatinine Clr Calc Pharmacy 90.7; Estimated Glomerular Filt Rate > 60; Glucose Random 94 mg/dL (60-115); Lipase 67 U/L (8-78); Potassium 4.2 mmol/L (3.3-5.1); Sodium 141 mmol/L (135-145)
[2022-05-07 01:05] LABS: Appearance Urine CLOUDY; Color Urine YELLOW; Glucose Urine UA NEG (NEG); Leukocyte Esterase Urine NEG (NEG); Nitrite Urine POS (NEG); Specific Gravity - Urine 1.025 (1.005-1.025); UACC Culture Trigger YES; Urine Blood TRACE (NEG); Urine Ketones NEG (NEG); Urine Protein NEG (NEG-TRACE)
[2022-05-07] MEDS: Acetaminophen 325 MG TABLET 650 MG PO (01:06)
[2022-05-07 01:17] LABS: Amorphous Sediment Urine 1+ /LPF; Bacteria Urine 4+ /LPF; Mucus Urine 1+ /LPF; Squamous Epithelial Cell Urine 1+ /LPF
[2022-05-11 06:26] LABS: Oxcarbazepine 14.8 mcg/mL (8.0-35.0)
== END 2022-05-07 02:09 | disposition home or self-care (01) ==
PROVIDERS: Emergency Provider Emergency Medicine
DX: R56.9 Unspecified convulsions (principal); E86.0 Dehydration; R07.89 Other chest pain; R10.9 Unspecified abdominal pain; F17.200 Nicotine dependence, unspecified, uncomplicated; Z71.6 Tobacco abuse counseling; Z20.822 Contact with and (suspected) exposure to COVID-19; Z79.899 Other long term (current) drug therapy
CPT/HCPCS: 36415; 70450; 71045; 74176; 80048; 80076; 80339; 81001; 83690; 85025; 87086; 87088; 87186; 87635; 96360; 99284

== ENCOUNTER 2022-10-26 10:33 | Emergency (ER) | payer MEDICARE, MEDICAID, SELFPAY ==
--- NOTE | ~2022-10-26 | CT_ITS ---
CT HEAD WITHOUT IV CONTRAST CT CERVICAL SPINE WITHOUT IV CONTRAST INDICATION: Seizure and fall. COMPARISON: Head CT 05/06/2022. TECHNIQUE: Multidetector CT acquisitions of the head and cervical spine were obtained without IV contrast. Multiplanar reformats were acquired and utilized for image interpretation. This CT examination was performed using dose optimization techniques as appropriate, variously including the following: *Automated exposure control *Adjustment of mA and/or kV according to patient size (this includes techniques or standardized protocols for targeted exams where dose is matched to indication/reason for exam; i.e. extremities or head) *Use of iterative reconstruction technique FINDINGS: HEAD: There is no intracranial hemorrhage, hydrocephalus, extra-axial surface collection, midline shift, or other herniation pattern. Andrea to white matter differentiation is diffusely maintained without evidence of an evolved acute territorial infarct. The basilar cisterns are preserved. No significant soft tissue abnormality. No acute osseous abnormality. The paranasal sinuses and the mastoid air cells are well aerated. CERVICAL SPINE: There are no acute fractures and there are no acute subluxations. There is some epidural gas within the lower cervical and upper thoracic spine that partially extends into several left greater than right neural foramina. This gas is most likely the sequela of recent spinal epidural injection and should be clinically correlated. There is some gas within the subcutaneous soft tissues at the cervicothoracic junction as well partially imaged. Straightening of the cervical lordosis. Multilevel endplate osteophytes. Craniocervical junction is intact. Imaged lung apices are clear. CT/CT cervical spine wo IV con IMPRESSION: - No acute intracranial findings. - No acute osseous findings within the cervical spine. - There is some epidural gas within the lower cervical and upper thoracic spine that partially extends into several left greater than right neural foramina. This gas is most likely the sequela of recent spinal epidural injection and should be clinically correlated. There is some gas within the subcutaneous soft tissues at the cervicothoracic junction as well partially imaged.
[2022-10-26 10:46] VITALS: BP 127/57; PULSE 95; RESP 18; TEMP 36.8; O2SAT 93; BMI 27.4
--- NOTE | 2022-10-26 10:51 | ECG_ITS ---
Test Reason : SEIZURE, FALL Blood Pressure : / mmHG Vent. Rate : 095 BPM Atrial Rate : 095 BPM P-R Int : 176 ms QRS Dur : 072 ms QT Int : 420 ms P-R-T Axes : 045 035 040 degrees QTc Int : 527 ms Normal sinus rhythm Possible Left atrial enlargement Cannot rule out Anterior infarct , age undetermined Prolonged QT Abnormal ECG Referred By: Michelle Cagle Electronically Signed By:WERNER FOX MD
--- NOTE | 2022-10-26 10:57 | ED_ITS ---
HPI - Seizure General Chief Complaint: Seizure Stated Complaint: seizure Time Seen by Provider: 10/26/22 10:37 History of Present Illness HPI Narrative: 47-year-old female with a past medical history of anxiety, depression, PTSD, asthma, and a known seizure disorder, on Oxycarbazepine 300 mg BID, presents emergency department by EMS with a c-collar in place with complaints of a witne ssed seizure at her home with roughly 1 minute loss consciousness. Patient states she was sitting on the toilet, urinating, when she felt dizzy and nauseous, she called for her daughter who helped her to the ground per EMS patient was postictal for 3 minutes, however; on arrival to the emergency de partment patient is A&O x4 and answering questions appropriately. She reports she had a permanent spinal stimulator placed on at [facility]. She reports prior to today her last seizure was greater than 3 months ago. she reports today symptoms are different than her typical pre seizure behaviors as she states she sits and stares into space prior to having seizure. She reports feeling nauseous currently. She denies any recent alcohol, marijuana, or any other drug use, recent illness, or known sick contacts. She denies any diarrhea, constipation, headache, vision changes. Patient states she is compliant with her medications. MD complaint: possible seizure Onset (ago): hour(s) Description of Episode: loss of consciousness Witnessed: Yes - by Bystander Seizure History: Yes Place: Home Associated symptoms: denies other symptoms Treatments prior to arrival: none Related Data Home Medications Medication Instructions Recorded Confirmed atorvastatin 20 mg tablet 1 tab PO BEDTIME 11/27/21 duloxetine 60 mg capsule,delayed 1 cap PO DAILY 11/27/21 release prazosin 5 mg capsule 2 cap PO BEDTIME 11/27/21 quetiapine 300 mg tablet 2 tab PO BEDTIME 11/27/21 oxcarbazepine 300 mg tablet 300 mg PO BID 02/04/22 Previous Rx's Medication Instructions Recorded nitrofurantoin 100 mg PO BID 7 days #14 caps 12/04/21 monohydrate/macrocrystals 100 mg capsule (Macrobid) oxycodone-acetaminophen 5 mg-325 1 tab PO Q6H PRN pain #20 tabs 01/11/22 mg tablet (Percocet) ibuprofen 600 mg tablet 600 mg PO Q6H PRN pain #20 tabs 03/11/22 Allergies Allergy/AdvReac Type Severity Reaction Status Date / Time adhesive Allergy Rash Verified 02/04/22 14:13 aspirin Allergy Anxiety Verified 02/04/22 14:13 Review of Systems Review of Systems: In addition to documented HPI above, the additional ROS was obtained: CONSTITUTIONAL: Denies fever, chills, weakness, fatigue, headache, night sweats, or weight loss EYES: Denies vision changes, eye pain, swelling, redness, foreign body, discharge ENT: Hearing normal. Denies sore throat, swallowing difficulty. congestion, ear pain, no hoarseness or CV: Denies chest pain or epigastric pain. No edema, palpitations, or dyspnea on exertion RESP: Denies shortness of breath. Denies cough, wheezing, dyspnea. Denies smoke exposure GI: Denies abdominal pain. Denies vomiting, constipation or diarrhea. No melena or hematochezia. : Denies irregular bleeding, and dysuria, urinary frequency, urinary incontinence/retention, urgency. Denies flank pain, hematuria MSK: Denies recent trauma, change in gait, myalgias, joint swelling or pain SKIN: Denies no lesions, rashes, or sores NEURO: Denies new numbness, tingling, dizziness, paresthesias or weakness. No loss of consciousness. Denies headache ENDOCRINE: Denies unexpected weight loss. Denies polyuria, polydipsia. No temperature intolerance HEME/ONC: Denies bleeding disorders, easy bruising, or lymphadenopathy PSYCH: Denies anxiety/panic, depression, SI/HI, or social issues. Yes all other systems are reviewed and are negative PMFSH Past Medical History Attestation statement: The following information was validated with the patient. Source: old records reviewed Medical History Anxiety Asthma Depression PTSD (post-traumatic stress disorder) Social History Social History Alcohol intake: never Patient Tobacco Use Status: Current someday Tobacco user Advance Directives: No Advance Directives Information Provided: No Current occupational status: unemployed Physical Exam Vital Signs: Vital Signs: Last Vital Signs Temp 98.3 F 10/26/22 10:46 Pulse 84 10/26/22 13:21 Resp 16 10/26/22 13:21 BP 97/63 10/26/22 13:21 Pulse Ox 93 10/26/22 13:21 O2 Del Method 10/26/22 13:21 BMI result Body Mass Index 27.4 Nursing notes and vital signs reviewed. GENERAL APPEARANCE: A&0 x 4, generally well appearing, no acute distress HENMT: Normal to inspection, atraumatic, face symmetrical. Normal external ears, nose, and oropharynx clear. EYE: PERRLA, EOM intact, structures appear normal NECK: ROM restricted due to c-collar in place CHEST: Normal to inspection HEART: Normal rate and regular rhythm, normal S1/S2, no M/R/G LUNGS: LS CTA, moving air well. Able to speak in complete sentences. No crackles, wheezes, or rhonchi auscultated ABDOMEN: Soft, nontender, nondistended. Normal bowel sounds noted BACK: No CVAT, no obvious deformity EXTREMITIES: Moving all extremities without difficulty. No cyanosis, clubbing, or edema. Normal capillary refill. NEUROLOGICAL: Alert and oriented, moving all 4 extremities with equal strength. CN not formally tested but appearing grossly intact. Cognition normal SKIN: Warm and dry without any lesions, rash, or visible sores PSYCH: Cooperative, normal affect, normal thought process Course Course Course Narrative: 1045: plan for EKG, blood work, UA, [place], CT head and cervical spine as patient has is she may have hit her head while being helped to the ground 1115: zofran ordered for nausea. Oxycodone ordered for back pain as pt has surgery on and was sent home with 7 day supply for pain control with last dose > 6 hrs ago per pt 1215: CT head/spine negative for Acute intracranial findings, acute osseous findings within cervical spine. CT cervical spine shows some epidural gas within lower cervical and upper thoracic spine this is consistent at area of spinal stimulator wire/stimulator placement. C-collar removed. Pending urine collection Medications Administered Discontinued Medications Generic Name Dose Route Start Last Admin Trade Name Freq PRN Reason Stop Dose Admin Ondansetron HCl 4 mg 10/26/22 11:17 10/26/22 11:25 Ondansetron Odt 4 Mg Tab.Rapdis TRANSLINGU 10/26/22 11:18 4 mg ONCE ONE Administration Oxycodone HCl 5 mg 10/26/22 11:17 10/26/22 11:25 Oxycodone Hcl Immed Release 5 Mg Tablet PO 10/26/22 11:18 5 mg ONCE ONE Administration Medical Decision Making Medical Decision Making [facility] Narrative: 47-year-old female with a past medical history of anxiety, depression, PTSD, asthma, and a known seizure disorder, on Oxycarbazepine 300 mg BID, presents emergency department by EMS with a c-collar in place with complaints of a witnessed seizure at her home with roughly [address] head and C-spine showing no osseous abnormalities or intracranial pathology. Blood work consistent with recent surgery with elevated WBC and moderately decreased hemoglobin level. Chemistries unremarkable. UA results pending, will contact pt with abnormalities/infection as pt is requesting discharge. Patient with LS CTA, LOPEZ equally with good strength, A&O x4. No complaints of nausea, dizziness, or headache on re-evaluation. History, physical, and diagnostics consistent with seizure most likely related to stress of surgery in recent anesthesia. Low suspicion for ACS, PE, syncope, TIA. Patient is safe for discharge at this time with plan to manage any discomfort with [id number] Tylenol and/or NSAIDs such as ibuprofen or naproxen. Educated to continue taking her anti-seizure medications as prescribed. HPI, PE, diagnostics, and plan discussed with patient and family with no unanswered questions at this time. Patient educated to return to the emergency department with new, worsening, or concerning emergent symptoms. Recommended to follow-up with her primary care provider in addition to her neurologist for further treatment and management. *Refer to Course for additional information on consultations, diagnostic interpretation, consultations, emergency department stay, conversations with patient and family, shared decision making with patient, and more information on medical decision making* Lab Data [facility] Lab Attestation statement: I reviewed the patient's lab results. 10/26/22 11:00 10/26/22 11:00 Labs: Lab Results 10/26/22 10/26/22 10/26/22 Range/Units 11:00 11:00 14:03 WBC 11.0 H (4.8-10.8) X10*3/uL RBC 3.63 L (4.20-5.50) X10*6/uL Hgb 10.2 L (12.0-16.0) g/dl Hct 31.1 L (37.0-47.0) % MCV 85.7 (80.0-98.0) fL MCH 28.1 (27.0-33.0) pg MCHC 32.8 (31.0-35.0) g/dl RDW 13.6 (11.0-16.0) % Plt Count 251 (160-400) X10*3/uL MPV 9.4 (9.4-12.3) fL Immature Gran % (Auto) 0.4 (0.0-0.4) % Neut % (Auto) 65.1 (45-73) % Lymph % (Auto) 24.5 (20-40) % [place] % (Auto) 9.1 (2-11) % Eos % (Auto) 0.7 (0-4) % Baso % (Auto) 0.2 (0-2) % Lymph # (Auto) 2.7 (1.2-4.9) X10*3/uL [place] # (Auto) 1.0 (0.1-1.2) X10*3/uL Eos # (Auto) 0.1 (0.0-0.4) X10*3/uL Baso # (Auto) 0.0 (0.0-0.2) X10*3/uL Abs Immat Gran (auto) 0.04 H (0.00-0.03) X10*3/uL Absolute Neuts (auto) 7.2 (2.0-8.3) x10*3/uL Absolute Nucleated RBC 0.000 (0.0-0.012) X10*3/uL Nucleated RBC % (auto) 0.0 (0.0-0.2) /100WBC Sodium 138 (135-145) mmol/L Potassium 3.6 (3.3-5.1) mmol/L Chloride 103 (96-108) mmol/L Carbon Dioxide 25 (22-29) mmol/L Anion Gap 14 (12-20) BUN 12 (9-16) mg/dL Creatinine 0.84 (0.5-1.4) mg/dL Estim Creat Clear Calc 86.8 Estimated GFR > 60 Random Glucose 124 H (60-115) mg/dL Calcium 8.9 D (8.4-10.2) mg/dL Magnesium 1.7 (1.6-2.6) mg/dL Total Bilirubin 0.3 (0.0-1.0) mg/dL AST 21 (5-31) U/L ALT 19 (0-31) U/L Alkaline Phosphatase 106 (39-117) U/L Total Protein 6.4 L (6.5-8.0) g/dL Albumin 3.7 (3.5-5.0) g/dL Urine Color Yellow Urine Appearance Clear Urine pH 5.5 (5.0-9.0) Ur Specific [place] 1.015 (1.005-1.025) Urine Protein Trace (Neg-Trace) mg/dL Urine Glucose (UA) Negative (Negative) mg/dL Urine Ketones Negative (Negative) mg/dL Urine Blood Moderate (2+) H (Negative) Urine Nitrite Positive H (Negative) Ur Leukocyte Esterase Negative (Negative) Independent Interpretation I performed an independent interpretation of an: CT Scan Interpretation: I independently reviewed this CT head showing no intracranial findings. I have independently reviewed the CT cervical spine showing no acute findings in the cervical spine. Epidural gas noted in lower cervical and upper thoracic spine correlates with patient's recent spinal stimulator/wire placement. Radiology Impression Discussion of test interpretation with radiology: I have reviewed the radiologist's reading. Radiologist Impression: CT HEAD WITHOUT IV CONTRAST CT CERVICAL SPINE WITHOUT IV CONTRAST INDICATION: Seizure and fall. COMPARISON: Head CT 05/06/2022. TECHNIQUE: Multidetector CT acquisitions of the head and cervical spine were obtained without IV contrast. Multiplanar reformats were acquired and utilized for image interpretation. This CT examination was performed using dose optimization techniques as appropriate, variously including the following: *Automated exposure control *Adjustment of mA and/or kV according to patient size (this includes techniques or standardized protocols for targeted exams where dose is matched to indication/reason for exam; i.e. extremities or head) *Use of iterative reconstruction technique FINDINGS: HEAD: There is no intracranial hemorrhage, hydrocephalus, extra-axial surface collection, midline shift, or other herniation pattern. Andrea to white matter differentiation is diffusely maintained without evidence of an evolved acute territorial infarct. The basilar cisterns are preserved. No significant soft tissue abnormality. No acute osseous abnormality. The paranasal sinuses and the mastoid air cells are well aerated. CERVICAL SPINE: There are no acute fractures and there are no acute subluxations. There is some epidural gas within the lower cervical and upper thoracic spine that partially extends into several left greater than right neural foramina. This gas is most likely the sequela of recent spinal epidural injection and should be clinically correlated. There is some gas within the subcutaneous soft tissues at the cervicothoracic junction as well partially imaged. Straightening of the cervical lordosis. Multilevel endplate osteophytes. Craniocervical junction is intact. Imaged lung apices are clear. CT/CT head/brain wo IV con IMPRESSION: - No acute intracranial findings. ? - No acute osseous findings within the cervical spine. ? - There is some epidural gas within the lower cervical and upper thoracic spine that partially extends into several left greater than right neural foramina. This gas is most likely the sequela of recent spinal epidural injection and should be clinically correlated. There is some gas within the subcutaneous soft tissues at the cervicothoracic junction as well partially imaged. Dictated By: Bret Frey MD Signed By: <Electronically signed by Bret Frey MD in OV> 10/26/22 1202 DD/ 1130 TD/TT:? Winch Stripper: KIRK Discharge Plan Discharge Clinical Impression: Seizure Patient Disposition: Home, Self-Care Instructions: Recurrent Seizures in Adults (ED) Additional Instructions: please follow-up with your primary care provider in 2-3 days as well as your neurologist. Prescriptions: No Action ibuprofen 600 mg tablet 600 mg PO Q6H PRN (Reason: pain) Qty: 20 0RF atorvastatin 20 mg tablet 1 tab PO BEDTIME quetiapine 300 mg tablet 2 tab PO BEDTIME prazosin 5 mg capsule 2 cap PO BEDTIME duloxetine 60 mg capsule,delayed release(DR/EC) 1 cap PO DAILY nitrofurantoin monohyd/m-cryst [Macrobid] 100 mg capsule 100 mg PO BID 7 Days Qty: 14 0RF Rx Instructions: must administer with a meal/food oxycodone-acetaminophen [Percocet] 5-325 mg tablet 1 tab PO Q6H PRN (Reason: pain) Qty: 20 0RF oxcarbazepine 300 mg tablet 300 mg PO BID Referrals: Michelle Streeter NP [Primary Care Provider] - Interventions: ED Discharge Assessment Last Done: 10/26/22 14:08 Discharge Date/Time: 10/26/22 14:09 Print Language: Sudanese
[2022-10-26 11:03] LABS: MANUAL DIFF FLAG NO
[2022-10-26 11:05] LABS: Basophils Percent Auto 0.2 % (0-2); Eosinophils Absolute Auto 0.1 X10*3/uL (0.0-0.4); Eosinophils Percent Auto 0.7 % (0-4); Hematocrit 31.1 % (37.0-47.0); Hemoglobin 10.2 g/dl (12.0-16.0); Imm Gran Abs Auto 0.04 X10*3/uL (0.00-0.03); Imm Gran Pct Auto 0.4 % (0.0-0.4); Lymphocytes Absolute Auto 2.7 X10*3/uL (1.2-4.9); Lymphocytes Percent Auto 24.5 % (20-40); Mean Corpuscular HGB Conc 32.8 g/dl (31.0-35.0); Mean Corpuscular Hemoglobin 28.1 pg (27.0-33.0); Mean Corpuscular Volume 85.7 fL (80.0-98.0); Mean Platelet Volume 9.4 fL (9.4-12.3); Monocytes Percent Auto 9.1 % (2-11); Neutrophils Absolute Auto 7.2 x10*3/uL (2.0-8.3); Neutrophils Percent Auto 65.1 % (45-73); Platelet Count 251 X10*3/uL (160-400); Red Blood Count 3.63 X10*6/uL (4.20-5.50); Red Cell Distribution Width 13.6 % (11.0-16.0)
[2022-10-26 11:24] LABS: Alanine Aminotransferase 19 U/L (0-31); Albumin Level 3.7 g/dL (3.5-5.0); Alkaline Phosphatase 106 U/L (39-117); Anion Gap 14 (12-20); Aspartate Amino Transferase 21 U/L (5-31); Bilirubin Total 0.3 mg/dL (0.0-1.0); Blood Urea Nitrogen 12 mg/dL (9-16); Calcium 8.9 mg/dL (8.4-10.2); Carbon Dioxide 25 mmol/L (22-29); Chloride 103 mmol/L (96-108); Creatinine Clr Calc Pharmacy 86.8; Estimated Glomerular Filt Rate > 60; Glucose Random 124 mg/dL (60-115); Magnesium 1.7 mg/dL (1.6-2.6); Potassium 3.6 mmol/L (3.3-5.1); Sodium 138 mmol/L (135-145); Total Protein 6.4 g/dL (6.5-8.0)
[2022-10-26] MEDS: Ondansetron ODT 4 MG TAB.RAPDIS TRANSLINGU (11:25)
[2022-10-26] MEDS: oxyCODONE HCl Immed Release 5 MG TABLET PO (11:25)
[2022-10-26 11:46] VITALS: BP 89/51; PULSE 90; RESP 16; O2SAT 95
[2022-10-26 13:21] VITALS: BP 97/63; PULSE 84; RESP 16; O2SAT 93
[2022-10-26 14:09] LABS: Appearance Urine Clear; Color Urine Yellow; Glucose Urine UA Negative (Negative); Leukocyte Esterase Urine Negative (Negative); Nitrite Urine Positive (Negative); PH 5.5 (5.0-9.0); Specific Gravity - Urine 1.015 (1.005-1.025); UMIC TRIGGER UACC YES; Urine Blood Moderate (2+) (Negative); Urine Ketones Negative (Negative); Urine Protein Trace mg/dL (Neg-Trace)
[2022-10-26 14:11] LABS: Bacteria Urine 4+ (None Seen); Hyaline Casts Urine 0-2 /LPF (0-2); Squamous Epithelial Cell Urine 0-2 /HPF (0-2); UACC Culture Trigger YES; WBC Urine 0-5 /HPF (0-5)
[2022-10-26 14:20] LABS: Amphetamine Screen Urine Not Detected (Not Detect); Barbiturates, Urine Not Detected (Not Detect); Benzodiazepines Screen Urine POSITIVE (Not Detect); Cannabinoid Screen Urine Not Detected (Not Detect); Cocaine Screen Urine POSITIVE (Not Detect); Fentanyl, urine POSITIVE (Not Detect); Opiate Screen Urine Not Detected (Not Detect); Phencyclidine Screen Urine Not Detected (Not Detect)
== END 2022-10-26 14:09 | disposition home or self-care (01) ==
PROVIDERS: Nurse Practitioner Family; Emergency Provider Emergency Medicine; PCP Nurse Practitioner Family
DX: G40.909 Epilepsy, unspecified, not intractable, without status epilepticus (principal); M54.6 Pain in thoracic spine; F17.200 Nicotine dependence, unspecified, uncomplicated; Z96.82 Presence of neurostimulator; Z79.02 Long term (current) use of antithrombotics/antiplatelets; Z79.899 Other long term (current) drug therapy
CPT/HCPCS: 36415; 70450; 72125; 80053; 80307; 81001; 83735; 85025; 87086; 87088; 87186; 93005; 99284; 99285

== ENCOUNTER 2023-05-20 07:55 | Outpatient (REF) | payer MEDICARE, MEDICAID, SELFPAY | END 2023-05-20 07:56 | disposition home or self-care (01) | LOC: HO.SH 07:55 | PROVIDERS: Visit Provider Internal Medicine | DX: Z01.118 Encounter for examination of ears and hearing with other abnormal findings (principal); H93.293 Other abnormal auditory perceptions, bilateral | CPT/HCPCS: 92550; 92557; 92588 ==